=== PATIENT | female | born 1990 | race Caucasian/White ===

== ENCOUNTER 2016-12-07 10:07 | Inpatient (IN) | payer SELFPAY ==
[2016-12-07 11:01] LABS: ROM Internal QC QC Line Present
[2016-12-07] MEDS ORDERED: Penicillin G Potassium IV* 5,000,000 UNITS in NS 0.9% 100 ML* 100 ML IVPB ONE (11:30)
[2016-12-07 11:55] LABS: Hematocrit 34 % (35-47); Hemoglobin 11.2 g/dl (12.0-16.0); Mean Corpuscular HGB Conc 34 g/dl (31-36); Mean Corpuscular Hemoglobin 30 pg (27-31); Mean Corpuscular Volume 89 fL (80-97); Mean Platelet Volume 9 um3 (7.4-10.4); Red Blood Count 3.75 10^6/ul (4.0-5.4); Red Cell Distribution Width 14 % (10.5-15); White Blood Count 10.5 10^3/ul (3.5-10.8)
[2016-12-07] MEDS ORDERED: Oxytocin in LR* 20 UNITS/1,000 ML BAG IVPB SCH (16:00)
[2016-12-07] MEDS: Penicillin G Potassium IV* 2,500,000 UNITS in NS 0.9% 100 ML* 100 ML IVPB SCH ×2 (16:14→20:31)
[2016-12-07] MEDS ORDERED: fentaNYL* 50 MCG/ML 2 ML VIAL (100 MCG VIAL) IV ONE (19:58)
[2016-12-07] MEDS ORDERED: fentaNYL* 50 MCG/ML 2 ML VIAL (100 MCG VIAL) ONE (19:59)
[2016-12-07] MEDS ORDERED: OBEPIDURAL* 250 ML ONE (21:44)
[2016-12-07] MEDS ORDERED: Famotidine TAB* 20 MG PO PRN (22:28)
[2016-12-07] MEDS ORDERED: Sodium Citrate/Citric Acid* 15 ML UDC PO PRN (22:28)
[2016-12-07] MEDS ORDERED: Phenylephrine IV* 40 MCG/ML 10 ML SYRINGE IV PUSH PRN ×2 (22:28)
[2016-12-07] MEDS ORDERED: OBEPIDURAL* 250 ML EPIDURAL SCH (23:00)
[2016-12-08] MEDS: Penicillin G Potassium IV* 2,500,000 UNITS in NS 0.9% 100 ML* 100 ML IVPB SCH (00:33)
[2016-12-08] MEDS ORDERED: Measles, Mumps,Rubella VACC* 0.5 ML/VIAL SUBCUT ONE (02:25)
[2016-12-08] MEDS ORDERED: Witch Hazel PAD* JAR TOPICAL PRN (02:25)
[2016-12-08] MEDS ORDERED: Acetaminophen TAB* 325 MG PO PRN (02:25)
[2016-12-08] MEDS ORDERED: Dibucaine 1% 28.35 GM TUBE PR PRN (02:25)
[2016-12-08] MEDS ORDERED: Influenza VAC *QUAD* 2016-17* 0.5 ML SYRINGE IM ONE (02:27)
[2016-12-08] MEDS ORDERED: Oxytocin in LR* 20 UNITS/1,000 ML BAG IVPB SCH (03:00)
[2016-12-08] MEDS: Docusate CAP* 100 MG PO SCH ×3 (09:17→23:34)
[2016-12-08] MEDS: Ibuprofen TAB* 600 MG PO PRN ×3 (11:15→23:38)
[2016-12-08] MEDS: oxyCODONE/Acetamin 5/325 MG* TAB PO PRN (19:47)
[2016-12-09] MEDS: Ibuprofen TAB* 600 MG PO PRN ×3 (06:38→23:40)
[2016-12-09] MEDS: oxyCODONE/Acetamin 5/325 MG* TAB PO PRN ×3 (06:39→20:19)
[2016-12-09 07:33] LABS: Hematocrit 27 % (35-47); Mean Corpuscular HGB Conc 33 g/dl (31-36); Mean Corpuscular Hemoglobin 30 pg (27-31); Mean Corpuscular Volume 91 fL (80-97); Mean Platelet Volume 9 um3 (7.4-10.4); Red Cell Distribution Width 13 % (10.5-15); White Blood Count 11.9 10^3/ul (3.5-10.8)
[2016-12-09] MEDS: Ferrous Gluconate TAB* 324 MG TAB PO SCH ×2 (09:48→20:19)
[2016-12-09] MEDS: Docusate CAP* 100 MG PO SCH ×3 (09:48→22:57)
[2016-12-10] MEDS: oxyCODONE/Acetamin 5/325 MG* TAB PO PRN (04:21)
[2016-12-10 07:53] VITALS: BP 116/70
[2016-12-10] MEDS: Ibuprofen TAB* 600 MG PO PRN (09:03)
[2016-12-10] MEDS: Ferrous Gluconate TAB* 324 MG TAB PO SCH (09:04)
[2016-12-10] MEDS: Docusate CAP* 100 MG PO SCH (09:05)
== END 2016-12-10 14:04 | disposition home or self-care (01) | DRG 775 ==
LOC: MCHOBOUT 10:07 → MCHOB 11:10
PROVIDERS: ADMIT Midwife; ATTEND Nurse Practitioner
PROC: 10E0XZZ Delivery of Products of Conception, External Approach (ICD-10-PCS; principal; 2016-12-08)
DX: O99.824 Streptococcus B carrier state complicating childbirth (principal); D64.9 Anemia, unspecified; F17.210 Nicotine dependence, cigarettes, uncomplicated; O99.334 Smoking (tobacco) complicating childbirth; O90.81 Anemia of the puerperium; Z91.040 Latex allergy status; Z88.8 Allergy status to other drugs, medicaments and biological substances; Z91.018 Allergy to other foods; Z3A.36 36 weeks gestation of pregnancy; Z37.0 Single live birth
CPT/HCPCS: 36415; 84112; 85025; 86850; 86900; 86901; 90686; A9270-GY; J2540; J3010

== ENCOUNTER 2017-08-27 17:13 | Emergency (ER) | payer SELFPAY ==
[2017-08-27 17:26] VITALS: BP 108/70
--- NOTE | 2017-08-27 17:54 | RAD ---
INDICATION: Right elbow injury COMPARISON: None TECHNIQUE: AP, lateral, and oblique views were obtained. FINDINGS: The bony structures, joint spaces, and soft tissues are normal for age. IMPRESSION: NEGATIVE EXAMINATION.
--- NOTE | 2017-08-27 18:11 | UC ---
Elbow Pain - HPI Summary HPI Summary: FELL DOWN [employer] TODAY AND STRUCK RIGHT ELBOW. HAS PAIN AND DECREASED ROM. NO SWELLING OR ABRASIONS. - History of Current Complaint Chief Complaint: UCUpperExtremity Stated Complaint: ELBOW INJURY Time Seen by Provider: 08/27/17 17:55 Hx Obtained From: Patient Hx Last Menstrual Period: now Onset/Duration: Hours, Traumatic Severity Initially: Moderate Severity Currently: Moderate Pain Intensity: 7 Pain Scale Used: 0-10 Numeric Location Of Pain: Is Discrete @ - RIGHT ELBOW - Allergies/Home Medications Allergies/Adverse Reactions: Allergies Allergy/AdvReac Type Severity Reaction Status Date / Time Bee Venom Allergy Severe Anaphylatic Verified 08/27/17 17:27 Shock Latex Allergy Severe Anaphylatic Verified 08/27/17 17:27 Shock Home Medications: Home Medications Ibuprofen TAB* [Motrin TAB* 800 MG] 1 tab PO ONCE 08/27/17 [History Confirmed ] PMH/Surg Hx/FS Hx/Imm Hx Previously Healthy: Yes Other History Of: Negative For: Anticoagulant Therapy - Surgical History Surgical History: Yes Surgery Procedure, Year, and Place: APPY 2004. "two cysts removed from my throat" - Family History Known Family History: Positive: Cardiac Disease, Diabetes - Social History Alcohol Use: Occasionally Substance Use Type: None Substance Use Comment - Amount & Last Used: Percocet for sciatic pain Smoking Status (MU): Light Every Day Tobacco Smoker Type: Cigarettes Amount Used/How Often: 5-6 cigs/day Length of Time of Smoking/Using Tobacco: 2012 Have You Smoked in the Last Year: Yes Household Exposure Type: Cigarettes - Immunization History Most Recent Influenza Vaccination: 07/08/14 Most Recent Tetanus Shot: 09/2016 Most Recent Pneumonia Vaccination: unk Review of Systems Constitutional: Negative Skin: Negative Respiratory: Negative Cardiovascular: Negative Gastrointestinal: Negative Musculoskeletal: Arthralgia, Decreased ROM All Other Systems Reviewed And Are Negative: Yes Physical Exam Triage Information Reviewed: Yes Appearance: Well-Appearing, No Pain Distress, Well-Nourished Vital Signs: Initial Vital Signs Temp 98.0 F 08/27/17 17:22 Pulse 90 08/27/17 17:22 Resp 12 08/27/17 17:22 BP 108/70 08/27/17 17:22 Pulse Ox 100 08/27/17 17:22 Vital Signs Reviewed: Yes Eyes: Positive: Conjunctiva Clear ENT: Positive: Hearing grossly normal Neck: Positive: Supple Respiratory: Positive: No respiratory distress, No accessory muscle use Cardiovascular: Positive: Pulses Normal Abdomen Description: Positive: Soft Musculoskeletal: Positive: No Edema, ROM Limited @, Other: - TTP DIFFUSELY OVER ELBOW. Neurological: Positive: Alert Psychological: Positive: Age Appropriate Behavior Skin: Positive: breakdown. Negative: rashes Diagnostics - Radiology RIGHT ELBOW XRAYS Xray Interpretation: No Acute Changes Radiology Interpretation Completed By: Radiologist Elbow Pain Course/Dx - Differential Dx/Diagnosis Provider Diagnoses: RIGHT ELBOW CONTUSION Discharge - Discharge Plan Condition: Stable Disposition: HOME Patient Education Materials: Contusion in Adults (ED) Referrals: Jalen Ayoub MD [Primary Care Provider] - Additional Instructions: XRAYS TODAY UNREMARKABLE. CHARMAINE WRAP FOR COMPRESSION. REST, ICE ELEVATE. OTC IBUPRFEN OR TYLENOL FOR DISCOMFORT NEEDED. FOLLOW-UP WITH ORTHO IF YOU ARE NOT IMPROVING EXPECTED OVER THE NEXT WEEK. ALL THE NUMBER BELOW FOR ASSISTANCE IN ESTABLISHING WITH A PCP An additional resource available to assist in finding the appropriate physician for your health care needs is the [facility] ([facility]). You may contact them by calling [phone].
== END 2017-08-27 18:33 | disposition home or self-care (01) ==
LOC: UCEAST 17:13
DX: S50.01XA Contusion of right elbow, initial encounter (principal); W10.9XXA Fall (on) (from) unspecified stairs and steps, initial encounter; Y93.9 Activity, unspecified; Y92.9 Unspecified place or not applicable; F17.210 Nicotine dependence, cigarettes, uncomplicated
CPT/HCPCS: 99212; G0463

== ENCOUNTER 2018-01-02 16:05 | Emergency (ER) | payer SELFPAY ==
[2018-01-02 16:31] VITALS: BP 99/65
--- NOTE | 2018-01-02 17:08 | UC ---
Complaint Female HPI - HPI Summary HPI Summary: 27 y/o female s/p IUD placement 07/2017 c/o- abdominal cramping since monday, worsening, no vaginal bleeding, discharge, no painful sex, cramping increased to where always mild ache, a few times an hour sharp, stabbing pain radiating to back. h/o appy. worse with driving over bumps, better with positioning ( sometimes flat, sometimes curled into ball). when going over bump with severe pain, felt lightheaded lasting 30 seconds. pt has h/o lightheadedness, increased with . G2, currently had 3, 2 y/o. denies urinary symptoms - History Of Current Complaint Chief Complaint: UCGU Stated Complaint: PERSONAL Time Seen by Provider: 01/02/18 16:44 Hx Obtained From: Patient Hx Last Menstrual Period: 12/14/[address] Onset/Duration: Sudden Onset, Lasting Days - since monday Timing: Constant - ache, Intermittent - sharp stabbing pain Severity Initially: Moderate Severity Currently: Moderate Pain Intensity: 7 Pain Scale Used: 0-10 Numeric - Allergies/Home Medications Allergies/Adverse Reactions: Allergies Allergy/AdvReac Type Severity Reaction Status Date / Time bee venom protein (honey bee) Allergy Severe Anaphylatic Verified 01/02/18 16:32 Shock latex Allergy Severe Anaphylatic Verified 01/02/18 16:32 Shock Latex, Natural Rubber Allergy Severe Anaphylatic Verified 01/02/18 16:32 Shock PMH/Surg Hx/FS Hx/Imm Hx Previously Healthy: Yes Other History Of: Negative For: Anticoagulant Therapy - Surgical History Surgical History: Yes Surgery Procedure, Year, and Place: APPY 2004. "two cysts removed from my throat" - Family History Known Family History: Positive: None, Cardiac Disease, Diabetes - Social History Alcohol Use: Rare Substance Use Type: None Substance Use Comment - Amount & Last Used: Percocet for sciatic pain Smoking Status (MU): Light Every Day Tobacco Smoker Type: Cigarettes Amount Used/How Often: 5-6 cigs/day Length of Time of Smoking/Using Tobacco: 2012 Have You Smoked in the Last Year: Yes Household Exposure Type: Cigarettes - Immunization History Most Recent Influenza Vaccination: 07/08/14 Most Recent Tetanus Shot: 09/2016 Most Recent Pneumonia Vaccination: unk Review of Systems Constitutional: Chills Eyes: Blurred Vision - lightheadedness lasting 30 seconds x 1 episode ENT: Negative Respiratory: Negative Gastrointestinal: Abdominal Pain, Other - cramping lower quad worse R Genitourinary: Negative Is Patient Immunocompromised?: No All Other Systems Reviewed And Are Negative: Yes Physical Exam - Summary Physical Exam Summary: Vaginal examination- normal external genitalia, non-tender, no LAD, rashes. vaginal wall normall, cervix slightly erythematous, + cervical motion tenderness , + tender R adenexa. minimal tenderness over uterus without pressure on cervix. dark yellow/ brown watery discharge noted. cultures obtained. Triage Information Reviewed: Yes Appearance: Well-Appearing, No Pain Distress, Well-Nourished Vital Signs: Initial Vital Signs Temp 98.6 F 01/02/18 16:25 Pulse 95 01/02/18 16:25 Resp 16 01/02/18 16:25 BP 99/65 01/02/18 16:25 Pulse Ox 100 01/02/18 16:25 Vital Signs Reviewed: Yes Eyes: Positive: Conjunctiva Clear Respiratory: Positive: Chest non-tender, Lungs clear, Normal breath sounds, No respiratory distress, No accessory muscle use. Negative: Crackles, Rhonchi, Stridor, Wheezing Cardiovascular: Positive: RRR, No Murmur, Pulses Normal Abdomen Description: Positive: No Organomegaly, Soft, Guarding - over suprapubic , RLQ, LLQ, McBurney's Point Tenderness, Other: - neg psoas, +. Negative: Nontender, CVA Tenderness (R), CVA Tenderness (L), Distended, Hepatomegaly, Peritoneal Signs, Splenomegaly Bowel Sounds: Positive: Present Neurological Exam: Normal Psychological Exam: Normal Skin Exam: Normal Complaint Female Dx - Course Course Of Treatment: STD testing sent, patient treated at with one times dose , will follow up with cultures, f/u with surveying or spatial science technician, no sexual activity until cleared. - Differential Dx/Diagnosis Differential Diagnosis/HQI/PQRI: Cervicitis, Ectopic, Sexually Transmitted Disease Provider Diagnoses: cervicitis Discharge - Sign-Out/Discharge Documenting (check all that apply): Discharge - Discharge Plan Condition: Good Disposition: HOME Prescriptions: HYDROcodone/ACETAMIN 5-325 MG* [Hume 5-325 TAB*] 1 tab PO Q4H PRN #15 tab MDD 6 PRN Reason: Pain Patient Education Materials: Azithromycin (By mouth), Ceftriaxone (By injection ), Cervicitis (ED) Referrals: Jalen Ayoub MD [Primary Care Provider] - Additional Instructions: - Return to ER with worsening symptoms, increased pain, vaginal discharge, fever > 101, nausea/ vomiting - Increased fluid intake - Avoid sexual contact until results from testing completed - ANtibiotics given at urgent care - Hume 5/325mg as needed for pain every 4-6 hours, [address] not drive - [facility]OM[facility]IST within 1 week for re-eval - Billing Disposition and Condition Condition: GOOD Disposition: HOME
[2018-01-02] MEDS ORDERED: cefTRIAXone VIAL(*) 250 MG VIAL IM ONE (17:40)
[2018-01-02] MEDS ORDERED: Azithromycin TAB* 250 MG PO ONE (17:41)
[2018-01-02] MEDS ORDERED: Lidocaine 1% MPF* 2 ML VIAL ONE (17:48)
--- NOTE | 2018-01-04 15:03 | PN ---
Progress Note - Progress Note Date of Service: 01/02/18 Note: Positive for Gardnerella Patient was not placed on antibiotics prior to discharge She is given Flagyl 500 mg twice a day 7 days Patient will be called by nursing staff Nothing further at this time
== END 2018-01-02 18:15 | disposition home or self-care (01) ==
LOC: UCEAST 16:05
DX: N72 Inflammatory disease of cervix uteri (principal); R42 Dizziness and giddiness; H53.8 Other visual disturbances; Z32.02 Encounter for pregnancy test, result negative; Z91.030 Bee allergy status; Z91.040 Latex allergy status; F17.210 Nicotine dependence, cigarettes, uncomplicated
CPT/HCPCS: 81003; 84702; 87480; 87491; 87510; 87591; 96372; 99212; A9270-GY; G0463; J0696

== ENCOUNTER 2018-10-30 11:42 | Emergency (ER) | payer MEDICAID ==
--- OUTSIDE RECORDS SUMMARY | 2018-10-30 11:51 | XMS REPORT | Continuity of Care Document ---
:1990 Author Organization [facility] Address [address] [place], [place] [id number] Phone Care Team Providers Name Role Phone Annette Restrepo NP Unavailable Unavailable Allergies, Adverse Reactions, Alerts Substance Reaction Status latex Anaphylaxis Active Medications Medication Instructions Dosage Effective Dates Status Comments (start - stop) ParaGard T 380A 380 Insert IU - No Longer square mm intrauterine Active device Problems Condition Effective Dates (start - Clinical Status Comments stop) Human immunodeficiency virus [HIV] - counseling Encounter for removal of intrauterine contraceptive device Encounter for test, result negative Human immunodeficiency virus [HIV] - counseling Encounter for insertion of intrauterine contraceptive device Body mass index (BMI) 22.0-22.9, adult Procedures Procedure Date No information Results Test Name Date and Time Measure Units Reference Range Abnormal Flag Status Comments No information Advance Directives Directive Yes / No Effective Date File Name No information Encounters Encounter Practice Location Reason(s) Diagnoses Date Provider Providers Description For Visit Copied on Encounter [facility] [place] [address] Provider: [facility] [address], Annette Finger [place], [place], [place], [address] [id number], [place]. [address] tel:[phone], [place], [address] [place], [place], [place], [address]. [id number], tel:[phone] tel:[phone] [facility] Human Abraham Bright. [facility] [place] immunodeficiency [address] Provider: [place] virus [HIV] [address], [place], [place], [address], [place], [address], [address] [place]uter[address], St, [place], contraceptive [place], [place], [place], [address]. [id number], [place] tel:[phone] [facility] Encounter for [facility] [place] test, [address] Provider: [place] result [address], [place]ene Finger negativeHuman [place], [place], [place], [address] immunodeficiency [address]. s, [address] virus [HIV] tel:[phone], [address], [place], [place] [address] [place], [place], [place], [address]. [id number], insertion of tel:[phone] [place] intrauterine [id number] tel:[phone] contraceptive [phone] deviceBody mass index (BMI) 22.0-22.9, adult Family History Family Member Diagnosis Age At Onset No information Immunizations Vaccine Date Status Comments No information Payers Payer name Insurance type Covered alliance party ID Authorization(s) No information Social History Type Description Quantity Date Captured Comments Alcohol Use Details Unknown Caffeine Use Details Unknown Tobacco Use Status Unknown Smoking Status Unknown Sex Female Vital Signs Date / Height Weight BMI Pulse Blood Temperature Respiratory Body Head BMI Pulse Inhaled Time: Rate Pressure Rate Surface Circumference percentile Ox Ox Area No information Chief Complaint And Reason For Visit No information Reason For Referral Reason For Referral No information Plan Of Treatment Date Type Action Status Goal Tobacco cessation counseling completed History Of Present Illness Encounter Date Complaint History Of Present Illness No information Functional Status Date Functional Assessment No information Medications Administered Medication Instructions Dosage Effective Dates (start - stop) Status Comments No information Instructions Date Instruction Additional Information No information Assessments Type Assessment Date No information Goals Health Concern Goal Type Priority Status Date No information Medical Equipment Description Device [place] Device Identifier Effective Dates (start - stop ) Status No information Mental Status Date Cognitive Assessment No information Health Concerns Observation Date No information Concern Status Date No information
--- NOTE | 2018-10-30 12:13 | UC ---
Complaint Female HPI - HPI Summary HPI Summary: Pleasant 28 yo female c/o progressively worse pelvic pain starting apprx Sat ( today is Tu). No fever / chills. Able to lie flat, but hurts. Some dysuria / freq / urg. Had IUD removed early last week, a few days prior to discomfort, routine procedure (pt reports that she wanted it out, not b/c pain). No GI issues, although appetite decreased. Some vaginal spotting, minimal discharge, no sores. Hx appdcetomy 2005. 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 - History Of Current Complaint Chief Complaint: UCAbdominalPain Stated Complaint: ABDOMINAL CRAMPING Time Seen by Provider: 10/30/18 12:02 Hx Obtained From: Patient Hx Last Menstrual Period: 10/18/18 Pain Intensity: 7 - Allergies/Home Medications Allergies/Adverse Reactions: Allergies Allergy/AdvReac Type Severity Reaction Status Date / Time bee venom protein (honey bee) Allergy Severe Anaphylatic Verified 10/30/18 11:53 Shock latex Allergy Severe Anaphylatic Verified 10/30/18 11:53 Shock Latex, Natural Rubber Allergy Severe Anaphylatic Verified 10/30/18 11:53 Shock Home Medications: Home Medications Ibuprofen 600 mg PO ONCE PRN 10/30/18 [History Confirmed 10/30/18] PMH/Surg Hx/FS Hx/Imm Hx Previously Healthy: Yes Other History Of: Negative For: Anticoagulant Therapy - Surgical History Surgical History: Yes Surgery Procedure, Year, and Place: APPY 2004. "two cysts removed from my throat" - Family History Known Family History: Positive: None, Cardiac Disease, Diabetes - Social History Alcohol Use: Rare Substance Use Type: None Substance Use Comment - Amount & Last Used: Percocet for sciatic pain Smoking Status (MU): Light Every Day Tobacco Smoker Type: Cigarettes Amount Used/How Often: 4-5 cigs/day Length of Time of Smoking/Using Tobacco: 2012 Have You Smoked in the Last Year: Yes Household Exposure Type: Cigarettes - Immunization History Most Recent Influenza Vaccination: 07/08/14 Most Recent Tetanus Shot: 09/2016 Most Recent Pneumonia Vaccination: unk Review of Systems All Other Systems Reviewed And Are Negative: Yes Constitutional: Positive: Other - see hpi Skin: Positive: Negative Eyes: Positive: Negative ENT: Positive: Negative Respiratory: Positive: Negative Cardiovascular: Positive: Negative Gastrointestinal: Positive: Other - see hpi Genitourinary: Positive: Other - see hpi Motor: Positive: Other - see hpi Neurovascular: Positive: Negative Musculoskeletal: Positive: Negative Neurological: Positive: Negative Psychological: Positive: Negative Is Patient Immunocompromised?: No Physical Exam Triage Information Reviewed: Yes Appearance: Well-Nourished - NAD, nontoxic. But looks uncomfortable. Vital Signs: Initial Vital Signs Temp 98.7 F 10/30/18 11:49 Pulse 90 10/30/18 11:49 Resp 18 10/30/18 11:49 BP 117/72 10/30/18 11:49 Pulse Ox 99 10/30/18 11:49 Eye Exam: Normal ENT Exam: Normal - MMM. Trachea midline. Neck exam: Normal Neck: Positive: Supple Respiratory Exam: Normal Respiratory: Positive: Chest non-tender, Lungs clear, Normal breath sounds, No respiratory distress, No accessory muscle use Cardiovascular Exam: Normal Cardiovascular: Positive: RRR, No Murmur, Pulses Normal, Brisk Capillary Refill Abdominal Exam: Other - + tender mid-right pelvis. Voluntary guarding, nondistended. No cvat, but back a little uncomfortable, nonfocal (pt attributes to working out a lot). Pelvic Exam: Positive: External Exam Normal, Other - Nl ext female genitalia. No sores / lesions / rash noted. Vag vault - yellow brown red thick d/c - very small amount. Cervix mild tender. R adnexa - without myra mass, region is more tender than L adnexa Musculoskeletal Exam: Normal Neurological Exam: Normal - grossly nonfocal Psychological Exam: Normal - conversing easily and appropriately Skin Exam: Normal - nondiaphoretic. No visible / reported rash. Complaint Female Dx - Course Course Of Treatment: Reviewed urine dip (d/w pt), cx sent. UCG negative. U/s - see meditech report. Reviewed with pt, including need to f/u with [facility] soon. I spoke with Dr. Beard (obgyn [facility] operations specialist), blood work ordered , his office will f/u on results. Pt will call him to schedule appt. Encouraged pt to go to the ED if sx worsen, or if they don't improve in the next couple days. Reviewed coa / tx plan. Questions as posed answered to the best of my ability. - Differential Dx/Diagnosis Provider Diagnosis: Pelvic pain, Ovarian cyst, Lesion of ovary Discharge - Sign-Out/Discharge Documenting (check all that apply): Patient Departure All imaging exams completed and their final reports reviewed: Yes - Discharge Plan Condition: Stable Disposition: HOME Prescriptions: DOXYcycline CAP(*) [DOXYcycline 100MG CAP(*)] 100 mg PO BID #20 cap Naproxen [Naproxen 500 mg tab] 500 mg PO Q12H PRN #30 tab PRN Reason: Pain Patient Education Materials: Ovarian Cyst (ED), Pelvic Pain in Women (ED) Forms: *Work Release Referrals: [facility] [place] [facility] [Outside] Jeremy Beard MD [Medical Doctor] - Additional Instructions: Please follow up with a primary care physician as soon as you are able. Please schedule a follow up appointment with ObGyn MD (Dr. Beard) in the next 2 weeks. Go to the Emergency Department for ANY worse or new problems. You had blood work drawn today. Urine culture has been sent. Female cultures have been sent. Avoid sexual intercourse until feeling better and results of the above have been reviewed with you (and treated as indicated). You have a lesion in your left ovary that needs further evaluation. Please make sure that you follow up with eyewear manufacturing supervisor as recommended. - Billing Disposition and Condition Condition: STABLE Disposition: Home
[2018-10-30] MEDS ORDERED: cefTRIAXone VIAL(*) 250 MG VIAL IM ONE (14:22)
[2018-10-30] MEDS ORDERED: Ketorolac INJ* 60 MG/2 ML VIAL IM ONE (14:22)
[2018-10-30] MEDS ORDERED: Lidocaine 1% INJ* 10 MG/ML 30 ML SDV INJ ONE (14:23)
[2018-10-30] MEDS ORDERED: DOXYcycline CAP(*) 100 MG PO ONE (14:24)
[2018-10-30 14:26] VITALS: BP 109/68
[2018-10-30] MEDS ORDERED: Lidocaine 1%* 5 ML VIAL ONE ×2 (14:30)
[2018-10-30 19:07] LABS: ABS Basophils 0 10^3/ul (0-0.2); ABS Eosinophils 0.1 10^3/ul (0-0.6); ABS Lymphocytes 2.3 10^3/ul (1.0-4.8); ABS Monocytes 0.5 10^3/ul (0-0.8); ABS Neutrophils 4.1 10^3/ul (1.5-7.7); ABS Nucleated RBC 0 10^3/ul; Eosinophil % 1.8 %; Hematocrit 42 % (35-47); Lymphocyte % 32.4 %; Mean Corpuscular HGB Conc 34 g/dl (31-36); Mean Corpuscular Hemoglobin 32 pg (27-31); Mean Corpuscular Volume 94 fL (80-97); Mean Platelet Volume 9.5 fL (7.4-10.4); Nucleated Red Blood Cells % 0.2; Platelet Count 290 10^3/ul (150-450); Red Blood Count 4.44 10^6/ul (4.00-5.40); Red Cell Distribution Width 13 % (10.5-15)
[2018-10-30 19:22] LABS: Albumin 4.5 g/dL (3.2-5.2); Anion Gap 5 mmol/L (2-11); CO2 Carbon Dioxide 27 mmol/L (22-32); Calcium 9.7 mg/dL (8.6-10.3); Chloride 108 mmol/L (101-111); Potassium 4.4 mmol/L (3.5-5.0); Sodium 140 mmol/L (135-145)
[2018-10-30 19:28] LABS: ALT 16 U/L (7-52); AST 30 U/L (13-39); Albumin/Globulin Ratio 1.7 (1-3); Alkaline Phosphatase 60 U/L (34-104); BUN/Creatinine Ratio 9.5 (8-20); Blood Urea Nitrogen 7 mg/dL (6-24); EGFR African American 113.9 (>60); EGFR Non-African American 94.1 (>60); Globulin 2.6 g/dL (2-4); Glucose 78 mg/dL (70-100); Total Protein 7.1 g/dL (6.4-8.9)
[2018-10-30 19:41] LABS: C Reactive Protein < 1.00 mg/L (<8.01)
[2018-10-31 12:25] LABS: Neisseria gonorrhoeae (GC) RNA Negative (Negative)
--- NOTE | 2018-10-31 17:36 | UC ---
- Progress Note Progress Note: 10/31/2018 Urine culture: negative, GC/Chlamydia: negative. Negative Gardnerella. Positive Wanda Please call back patient and inform results and advised a Rx of Fluconazole PO was sent to pharmacy to treat yeast infection. Thank You Adrienne Lincoln PA-C Course/Dx - Diagnoses Provider Diagnoses: Pelvic pain, Ovarian cyst, Lesion of ovary Discharge - Sign-Out/Discharge Documenting (check all that apply): Patient Departure - D/C home All imaging exams completed and their final reports reviewed: Yes - Discharge Plan Condition: Stable Disposition: HOME Prescriptions: DOXYcycline CAP(*) [DOXYcycline 100MG CAP(*)] 100 mg PO BID #20 cap Naproxen [Naproxen 500 mg tab] 500 mg PO Q12H PRN #30 tab PRN Reason: Pain Patient Education Materials: Ovarian Cyst (ED), Pelvic Pain in Women (ED) Forms: *Work Release Referrals: [facility] [place] [facility] [Outside] Jeremy Beard MD [Medical Doctor] - Additional Instructions: Please follow up with a primary care physician as soon as you are able. Please schedule a follow up appointment with ObGyn (Dr. Beard) in the next 2 weeks. Go to the Emergency Department for ANY worse or new problems. You had blood work drawn today. Urine culture has been sent. Female cultures have been sent. Avoid sexual intercourse until feeling better and results of the above have been reviewed with you (and treated as indicated). You have a lesion in your left ovary that needs further evaluation. Please make sure that you follow up with wrapper dipper as recommended. - Billing Disposition and Condition Condition: STABLE Disposition: Home
== END 2018-10-30 14:45 | disposition home or self-care (01) ==
LOC: UCEAST 11:42
DX: R10.2 Pelvic and perineal pain (principal); N83.01 Follicular cyst of right ovary; N83.291 Other ovarian cyst, right side; B37.3 Candidiasis of vulva and vagina; Z91.030 Bee allergy status; Z91.040 Latex allergy status; F17.210 Nicotine dependence, cigarettes, uncomplicated
CPT/HCPCS: 36415; 76830; 80053; 81003; 84702; 85025; 86140; 87086; 87480; 87491; 87510; 87591; 96372; 99212; A9270-GY; G0463; J0696; J1885

== ENCOUNTER 2018-12-03 17:21 | Emergency (ER) | payer MEDICAID ==
[2018-12-03 19:35] LABS: ABS Basophils 0 10^3/ul (0-0.2); ABS Eosinophils 0.1 10^3/ul (0-0.6); ABS Lymphocytes 2.7 10^3/ul (1.0-4.8); ABS Monocytes 0.7 10^3/ul (0-0.8); ABS Neutrophils 3.9 10^3/ul (1.5-7.7); ABS Nucleated RBC 0 10^3/ul; Eosinophil % 1.8 %; Hematocrit 41 % (35-47); Hemoglobin 13.6 g/dl (12.0-16.0); Lymphocyte % 36.2 %; Mean Corpuscular HGB Conc 34 g/dl (31-36); Mean Corpuscular Hemoglobin 31 pg (27-31); Mean Corpuscular Volume 92 fL (80-97); Mean Platelet Volume 8.5 fL (7.4-10.4); Nucleated Red Blood Cells % 0; Platelet Count 241 10^3/ul (150-450); Red Cell Distribution Width 13 % (10.5-15); White Blood Count 7.6 10^3/ul (3.5-10.8)
[2018-12-03 19:52] LABS: ALT 12 U/L (7-52); AST 16 U/L (13-39); Albumin 4.6 g/dL (3.2-5.2); Albumin/Globulin Ratio 1.6 (1-3); Alkaline Phosphatase 48 U/L (34-104); Anion Gap 3 mmol/L (2-11); BUN/Creatinine Ratio 18.8 (8-20); Blood Urea Nitrogen 13 mg/dL (6-24); C Reactive Protein < 1.00 mg/L (<8.01); CO2 Carbon Dioxide 25 mmol/L (22-32); Calcium 9.5 mg/dL (8.6-10.3); Chloride 109 mmol/L (101-111); EGFR African American 123.5 (>60); EGFR Non-African American 102.1 (>60); Globulin 2.8 g/dL (2-4); Glucose 96 mg/dL (70-100); Potassium 4.3 mmol/L (3.5-5.0); Sodium 137 mmol/L (135-145); Total Protein 7.4 g/dL (6.4-8.9)
[2018-12-03] MEDS ORDERED: Ibuprofen TAB* 400 MG PO ONE (20:29)
[2018-12-03] MEDS ORDERED: HYDROcodone/ACETAMIN 5-325 MG* 1 TAB PO ONE (20:29)
--- NOTE | 2018-12-03 20:59 | ED ---
Abdominal Pain/Female - HPI Summary HPI Summary: The patient is a 28 year old female who is presenting to the [facility] with a chief complaint of abd pain. The abd pain is stated to be over the suprapubic region. Prior to [facility] arrival, the patient reports of scheduling a surgery for removal of her ovarian cyst in December. The pain has been present for 1 month and a half, but has worsened since 3 days ago. The patient also recently finished her medication that was previously prescribed to her. Symptoms are aggravated by palpation and are alleviated by position. The patient rates the pain as a 8/10 in severity. The pain is also reportedly near the pelvic region as well. - History of Current Complaint Chief Complaint: EDAbdPain Stated Complaint: ABD/PELVIC PAIN Time Seen by Provider: 12/03/18 20:17 Hx Obtained From: Patient Hx Last Menstrual Period: 11/16/18 Onset/Duration: Still Present Timing: Constant Pain Intensity: 8 Pain Scale Used: 0-10 Numeric Location: Suprapubic Aggravating Factor(s): Nothing Alleviating Factor(s): Nothing Associated Signs and Symptoms: Positive: Negative Allergies/Adverse Reactions: Allergies Allergy/AdvReac Type Severity Reaction Status Date / Time bee venom protein (honey bee) Allergy Severe Anaphylatic Verified 12/03/18 17:34 Shock latex Allergy Severe Anaphylatic Verified 12/03/18 17:34 Shock Latex, Natural Rubber Allergy Severe Anaphylatic Verified 12/03/18 17:34 Shock PMH/Surg Hx/FS Hx/Imm Hx Endocrine/Hematology History: Denies: Hx Anticoagulant Therapy, Hx Diabetes, Hx Thyroid Disease Cardiovascular History: Denies: Hx Hypertension, Hx Pacemaker/ICD Respiratory History: Reports: Hx Asthma - as child Denies: Hx Chronic Obstructive Pulmonary Disease (COPD) GI History: Denies: Hx Ulcer History: Reports: Hx Renal Disease - pyelonephritis Comment Only: Other Problems/Disorders - ovarian cysts Neurological History: Denies: Hx Dementia, Hx Seizures Psychiatric History: Denies: Hx Substance Abuse - Cancer History Cancer Type, Location and Year: denies - Surgical History Surgery Procedure, Year, and Place: APP2004. "two cysts removed from my throat" - Immunization History Date of Tetanus Vaccine: unknown Date of Influenza Vaccine: unknown Infectious Disease History: No Infectious Disease History: Denies: Hx Clostridium Difficile, Hx Hepatitis, Hx Human Immunodeficiency Virus (HIV), Hx of Known/Suspected MRSA, Hx Shingles, Hx Tuberculosis, Hx Known/ Suspected VRE, Hx Known/Suspected VRSA, History Other Infectious Disease, Traveled Outside the [place] in Last 30 Days - Family History Known Family History: Positive: Cardiac Disease, Hypertension, Diabetes - Social History Alcohol Use: None Substance Use Type: Reports: None Substance Use Comment - Amount & Last Used: Percocet for sciatic pain Hx Tobacco Use: Yes Smoking Status (MU): Light Every Day Tobacco Smoker Type: Cigarettes Amount Used/How Often: 4-5 cigs/day Length of Time of Smoking/Using Tobacco: 2012 Have You Smoked in the Last Year: Yes Review of Systems Constitutional: Negative Eyes: Negative ENT: Negative Cardiovascular: Negative Respiratory: Negative Positive: Abdominal Pain - suprapubic abd pain Genitourinary: Negative Musculoskeletal: Other - Pelvic pain Skin: Negative Neurological: Negative Psychological: Normal All Other Systems Reviewed And Are Negative: Yes Physical Exam - Summary Physical Exam Summary: VITAL SIGNS: Reviewed. GENERAL: Patient is a well-developed and nourished (MALE) who is lying comfortable in the stretcher. Patient is not in any acute respiratory distress. HEAD AND FACE: No signs of trauma. No ecchymosis, hematomas or skull depressions. No sinus tenderness. EYES: PERRLA, EOMI x 2, No injected conjunctiva, no nystagmus. EARS: Hearing grossly intact. Ear canals and tympanic membranes are within normal limits. MOUTH: Oropharynx within normal limits. NECK: Supple, trachea is midline, no adenopathy, no JVD, no carotid bruit, no c- spine tenderness, neck with full ROM. CHEST: Symmetric, no tenderness at palpation LUNGS: Clear to auscultation bilaterally. No wheezing or crackles. CVS: Regular rate and rhythm, S1 and S2 present, no murmurs or gallops appreciated. ABDOMEN: Tenderness over the left pelvic area EXTREMITIES: FROM in all major joints, no edema, no cyanosis or clubbing. NEURO: Alert and oriented x 3. No acute neurological deficits. Speech is normal and follows commands. SKIN: Dry and warm Triage Information Reviewed: Yes Vital Signs On Initial Exam: Initial Vitals Temp Pulse Resp BP Pulse Ox 98.5 F 84 17 127/93 98 12/03/18 17:30 12/03/18 17:30 12/03/18 17:30 12/03/18 17:30 12/03/18 17:30 Vital Signs Reviewed: Yes Diagnostics - Vital Signs Vital Signs Temp Pulse Resp BP Pulse Ox 12/03/18 19:30 97.6 F 74 18 122/78 100 12/03/18 17:30 98.5 F 84 17 127/93 98 - Laboratory Lab Results: Lab Results 12/03/18 12/03/18 12/03/18 Range/Units 19:23 19:23 19:23 WBC 7.6 (3.5-10.8) 10^3/ul RBC 4.40 (4.00-5.40) 10^6/ul Hgb 13.6 (12.0-16.0) g/dl Hct 41 (35-47) % MCV 92 (80-97) fL MCH 31 (27-31) pg MCHC 34 (31-36) g/dl RDW 13 (10.5-15) % Plt Count 241 (150-450) 10^3/ul MPV 8.5 (7.4-10.4) fL Neut % (Auto) 51.9 % Lymph % (Auto) 36.2 % [place] % (Auto) 9.4 % Eos % (Auto) 1.8 % Baso % (Auto) 0.7 % Absolute Neuts (auto) 3.9 (1.5-7.7) 10^3/ul Absolute Lymphs (auto) 2.7 (1.0-4.8) 10^3/ul Absolute Monos (auto) 0.7 (0-0.8) 10^3/ul Absolute Eos (auto) 0.1 (0-0.6) 10^3/ul Absolute Basos (auto) 0 (0-0.2) 10^3/ul Absolute Nucleated RBC 0 10^3/ul Nucleated RBC % 0 Sodium 137 (135-145) mmol/L Potassium 4.3 (3.5-5.0) mmol/L Chloride 109 (101-111) mmol/L Carbon Dioxide 25 (22-32) mmol/L Anion Gap 3 (2-11) mmol/L BUN 13 (6-24) mg/dL Creatinine 0.69 (0.51-0.95) mg/dL Est GFR ( Amer) 123.5 (>60) Est GFR (Non-Af Amer) 102.1 (>60) BUN/Creatinine Ratio 18.8 (8-20) Glucose 96 (70-100) mg/dL Lactic Acid 0.8 (0.5-2.0) mmol/L Calcium 9.5 (8.6-10.3) mg/dL Total Bilirubin 0.40 (0.2-1.0) mg/dL AST 16 (13-39) U/L ALT 12 (7-52) U/L Alkaline Phosphatase 48 (34-104) U/L C-Reactive Protein < 1.00 (<8.01) mg/L Total Protein 7.4 (6.4-8.9) g/dL Albumin 4.6 (3.2-5.2) g/dL Globulin 2.8 (2-4) g/dL Albumin/Globulin Ratio 1.6 (1-3) Lipase 15 (11.0-82.0) U/L Result Diagrams: 12/03/18 19:23 12/03/18 19:23 Lab Statement: Any lab studies that have been ordered have been reviewed, and results considered in the medical decision making process. - Ultrasound No standard instances Ultrasound Interpretation Completed By: Radiologist Summary of Ultrasound Findings: US Reveals as per radiologist, 1. Endometrium is abnormally thickened at 21 mm. 2. 3 x 2.7 x 3.3 cm left adnexal mass with some shadowing calcifications and. some hyperechoic components, possibly pelvic dermoid. This is not significantly. changed. 3. No ovarian torsion with color flow and vascular waveforms documented. 4. Moderate amount of fluid in the pelvis, greater than that expected for. physiologic fluid. This is nonspecific, and may be related to recent rupture of. an ovarian cyst, endometriosis, inflammation or infection, among other. etiologies. The ED Physician has reviewed this radiology report. Abdominal Pain Fem Course/Dx - Course Course Of Treatment: The patient is a 28 year old female who is presenting to the [facility] with a chief complaint of abd pain in the suprapubic region. The patient received an Ultrasound in the [facility]. The blood work was unremarkable. The patient will be discharged home with a dx of ovarian cyst. The patient has stated that she will be seeing Dr. Christensen for removal of previous ovarian cyst in December. We recommended follow up Dr. Christensen (her BOWLING BALL PATCHER) as soon as possible. - Diagnoses Provider Diagnoses: Ovarian cyst Discharge - Sign-Out/Discharge Documenting (check all that apply): Patient Departure - Discharge Home Patient Received Moderate/Deep Sedation with Procedure: No - Discharge Plan Condition: Stable Disposition: HOME Prescriptions: HYDROcodone/ACETAMIN 5-325 MG* [[place] 5-325 TAB*] 1 tab PO Q6H PRN #10 tab MDD 4 PRN Reason: Pain Ibuprofen TAB* [Motrin TAB* 600 MG] 600 mg PO Q6H #30 tab Patient Education Materials: Ovarian Cyst (ED) Forms: *Work Release Referrals: [facility] [Outside] Brent Christensen MD [Medical Doctor] - Additional Instructions: RETURN TO THE EMERGENCY DEPARTMENT FOR CHANGING OR WORSENING SYMPTOMS. FOLLOW UP WITH your BOWLING BALL PATCHER Dr. Christensen IN 1-2 DAYS. - Attestation Statements Document Initiated by Scribe: Yes Documenting Scribe: Jorge Hankins Provider For Whom Scribe is Documenting (Include Credential): Dr. Dick Dobbs Scribe Attestation: I, Jorge Hankins, scribed for Dr. Dick Dobbs on 12/04/18 at 0023. Status of Scribe Document: Ready
[2018-12-03 23:35] LABS: HCG Pregnancy < 0.60 mIU/mL
[2018-12-04 00:03] LABS: Urine Appearance Clear; Urine Bilirubin Negative (Negative); Urine Blood Negative (Negative); Urine Color Yellow; Urine Glucose Negative (Negative); Urine Ketones Negative (Negative); Urine Nitrite Negative (Negative); Urine Protein Negative (Negative); Urine Specific Gravity 1.021 (1.010-1.030); Urine Urobilinogen Negative (Negative)
[2018-12-04] MEDS ORDERED: HYDROcodone/ACETAMIN 5-325 MG* 1 TAB PO ONE (00:26)
[2018-12-04 00:51] VITALS: BP 95/65
== END 2018-12-04 00:50 | disposition home or self-care (01) ==
LOC: ED 17:21
DX: N83.202 Unspecified ovarian cyst, left side (principal); F17.210 Nicotine dependence, cigarettes, uncomplicated
CPT/HCPCS: 36415; 76830; 80053; 81003; 83605; 83690; 84702; 85025; 86140; 99283; A9270-GY

== ENCOUNTER 2018-12-21 07:11 | Observation (INO) | payer MEDICAID ==
[~2018-12-21 07:11] MED LIST: Buffered Lidocaine 1% SYRIN* 1 ML/SYRINGE INTRADERM ONE; Lactated Ringers 1000 ML Bag* 1,000 ML IV SCH; Sodium Citrate/Citric Acid* 15 ML UDC PO ONE
[2018-12-21] MEDS ORDERED: Sodium Citrate/Citric Acid* 15 ML UDC ONE (07:26)
[2018-12-21] MEDS ORDERED: Buffered Lidocaine 1% SYRIN* 1 ML/SYRINGE INTRADERM ONE (08:00)
[2018-12-21 08:28] LABS: ABS Basophils 0 10^3/ul (0-0.2); ABS Eosinophils 0.1 10^3/ul (0-0.6); ABS Lymphocytes 2.4 10^3/ul (1.0-4.8); ABS Monocytes 0.6 10^3/ul (0-0.8); ABS Neutrophils 6.4 10^3/ul (1.5-7.7); ABS Nucleated RBC 0 10^3/ul; Eosinophil % 0.8 %; Hematocrit 43 % (35-47); Hemoglobin 14.3 g/dl (12.0-16.0); Lymphocyte % 25.1 %; Mean Corpuscular HGB Conc 34 g/dl (31-36); Mean Corpuscular Hemoglobin 31 pg (27-31); Mean Corpuscular Volume 93 fL (80-97); Mean Platelet Volume 9.2 fL (7.4-10.4); Nucleated Red Blood Cells % 0.1; Platelet Count 266 10^3/ul (150-450); Red Blood Count 4.57 10^6/ul (4.00-5.40); Red Cell Distribution Width 13 % (10.5-15); White Blood Count 9.5 10^3/ul (3.5-10.8)
[2018-12-21] MEDS ORDERED: Rocuronium* 10 MG/ML VIAL ONE (08:57)
[2018-12-21] MEDS ORDERED: Propofol* 10 MG/ML 20 ML BTL ONE (08:57)
[2018-12-21] MEDS ORDERED: Midazolam* 1 MG/ML 2 ML VIAL (2 MG) ONE (08:57)
[2018-12-21] MEDS ORDERED: fentaNYL* 50 MCG/ML 2 ML VIAL (100 MCG VIAL) ONE ×2 (08:57→10:34)
[2018-12-21] MEDS ORDERED: Bupivacaine 0.5% W/EPI SDV* 30 ML VIAL ONE (09:04)
[2018-12-21] MEDS ORDERED: Glycopyrrolate IV* 0.2 MG/ML 1 ML VIAL ONE (09:43)
[2018-12-21] MEDS ORDERED: Naloxone* 0.4 MG/ML 1 ML VIAL IV PRN (09:46)
[2018-12-21] MEDS ORDERED: DiMENhydriNATE IV* 50 MG/ML VIAL IV PUSH PRN (09:46)
[2018-12-21] MEDS: fentaNYL* 50 MCG/ML 2 ML VIAL (100 MCG VIAL) IV PRN ×2 (10:37→11:00)
--- NOTE | 2018-12-21 11:20 | OP ---
OPERATIVE REPORT: DATE OF OPERATION: 12/21/18 DATE OF : 89 SURGEON: Brent Christensen MD. CONVEYOR TENDER: Dr. Rose. ANESTHESIA: General endotracheal tube. PRE-OP DIAGNOSES: Left ovarian cyst and pelvic pain. POST-OP DIAGNOSES: Left ovarian cyst and pelvic pain plus multicystic right ovary. OPERATIVE PROCEDURE: Mini laparotomy, left ovarian cystectomy, and cautery of right ovary. FINDINGS: On laparotomy, the left ovary was enlarged with a cystic area of approximately 3 cm in siz e. The right ovary was also slightly enlarged but with multiple small cysts. No distinct cystic are a that was large enough and the fluid that was within it was clear and yellow. DESCRIPTION OF PROCEDURE: The patient identified, procedure identified as a mini laparotomy and ovar rhonda cystectomy. The patient was taken to the operating room, prepped and draped in the usual fashion in the dorsal lithotomy position under general anesthesia. A Aguilar catheter was placed and a sponge stick placed in the vagina. A small incision was made 2 cm above the pubic symphysis in the midline and carried down to fat, fascia, and peritoneum. The ovary was identified, brought up to the incisi on. The cystic area was identified. A small incision was made in the tunica and dissected around th e cyst using the Metzenbaum scissors. The whole cyst was excised in toto and sent for pathology. Th e ovarian base where the cyst was present was cauterized until good hemostasis was verified. A 3-0 P olysorb suture was used to close the space and a baseball stitch was used to close the tunica. Good hemostasis was verified. The fallopian tube appeared normal. The ovary was placed back in the abdominal cavity. The right ovary was removed out through the incision and inspected, found to have multiple cysts and slightly enlarged approximately 3 x 4 cm. An incision was made into an area that was felt to be cystic and only clear fluid was obtained and no cyst wall could be easily identified a nd certainly did not appear as a dermoid like. Several other small cysts were incised in order to dr ain them, but no dermoid was identified. This ovary was placed back in the abdominal cavity. Good h emostasis was verified. The fascia was then closed using 0 Polysorb in a running fashion. Good hemo stasis was verified in the subcutaneous layers and the skin was closed with 4-0 Monocryl in a subcuti cular fashion. All sponge and instrument counts were correct, and the patient returned to recover ro om in stable condition. [id number]/[facility] #: [id number]
[2018-12-21 11:22] VITALS: BP 106/63
[2018-12-21] MEDS ORDERED: HYDROmorphone INJ1* 1 MG/ML SYRINGE IV PRN (12:21)
[2018-12-21] MEDS ORDERED: Ondansetron INJ* 2 MG/ML VIAL IV PRN (12:22)
[2018-12-21] MEDS ORDERED: oxyCODONE/Acetamin 5/325 MG* TAB PO PRN (12:44)
[2018-12-21] MEDS ORDERED: Lactated Ringers 1000 ML Bag* 1,000 ML IV SCH (13:00)
[2018-12-21] MEDS ORDERED: Ibuprofen TAB* 600 MG PO SCH (13:00)
== END 2018-12-21 15:54 | disposition home or self-care (01) ==
LOC: OR 07:11 → SSU 12:03
PROVIDERS: ADMIT Obstetrics & Gynecology; ATTEND Obstetrics & Gynecology
DX: N83.202 Unspecified ovarian cyst, left side (principal); R10.2 Pelvic and perineal pain
CPT/HCPCS: 36415; 81025; 85025; 86850; 86900; 86901; 88305; 96374; 96375; A9270-GY; G0378; J2250; J2704; J3010

== ENCOUNTER 2019-03-16 11:59 | Emergency (ER) | payer MEDICAID, OTHER ==
[2019-03-16 12:17] VITALS: BP 118/58
--- NOTE | 2019-03-16 12:20 | UC ---
Skin Complaint HPI - HPI Summary HPI Summary: 28-year-old female presents with complaint of pain from sunburn that she sustained 5 days ago. She is fair complected and aldrich easily. She has had peeling of the skin and some oozing/weeping. She denies any fevers and states that she has tried aloe and topical lidocaine. The lidocaine caused burning discomfort. She denies any fever or other symptoms. - History of Current Complaint Time Seen by Provider: 03/16/19 12:05 Stated Complaint: SKIN COMPLAINT Hx Obtained From: Patient Hx Last Menstrual Period: 11/16/18 - Allergy/Home Medications Allergies/Adverse Reactions: Allergies Allergy/AdvReac Type Severity Reaction Status Date / Time bee venom protein (honey bee) Allergy Severe Anaphylatic Verified 03/16/19 12:08 Shock latex Allergy Severe Anaphylatic Verified 03/16/19 12:08 Shock blueberries Allergy Intermediate itchy Uncoded 03/16/19 12:08 throat PMH/Surg Hx/FS Hx/Imm Hx Previously Healthy: Yes Other History Of: Negative For: Anticoagulant Therapy - Surgical History Surgical History: Yes Surgery Procedure, Year, and Place: APPY 2004. "two cysts removed from my throat" - Family History Known Family History: Positive: None, Cardiac Disease, Hypertension, Diabetes - Social History Occupation: Employed Full-time Alcohol Use: None Substance Use Type: None Substance Use Comment - Amount & Last Used: Percocet for sciatic pain Smoking Status (MU): Light Every Day Tobacco Smoker Type: Cigarettes Amount Used/How Often: 4-5 cigs/day Length of Time of Smoking/Using Tobacco: 2013 Have You Smoked in the Last Year: Yes Household Exposure Type: Cigarettes - Immunization History Most Recent Influenza Vaccination: 07/08/14 Most Recent Tetanus Shot: 09/2016 Most Recent Pneumonia Vaccination: unk Review of Systems All Other Systems Reviewed And Are Negative: Yes Constitutional: Negative: Fever Skin: Positive: Other - Sunburn Eyes: Positive: Negative Musculoskeletal: Positive: Negative Physical Exam Triage Information Reviewed: Yes Appearance: Well-Appearing, No Pain Distress, Well-Nourished Eye Exam: Normal ENT: Positive: Hearing grossly normal Respiratory: Positive: Lungs clear Cardiovascular: Positive: RRR Musculoskeletal Exam: Normal Psychological Exam: Normal Skin Exam: Other - sunburn in the area of her upper chest, shoulders and upper back. There is no active weeping. There is evidence of areas that may have blistered and have peeled. No areas of concern for infection Course/Dx - Course Course Of Treatment: Sunburn which has largely healed at this point. The patient appears comfortable. She has been using ibuprofen and topical chills. I would offer a single painful now but patient is driving. There is no indication for further. No evidence for infection. Mostly first-degree with some areas of second- degree burn but again largely healed now 5 days out. - Diagnoses Provider Diagnosis: Sunburn of second degree Discharge - Sign-Out/Discharge Documenting (check all that apply): Patient Departure All imaging exams completed and their final reports reviewed: No Studies - Discharge Plan Condition: Improved Disposition: HOME Patient Education Materials: Sunburn (ED) Referrals: [facility] [Outside] [facility] [Outside] Additional Instructions: Continue with topical aloe or Solarcaine as needed. Chill these for comfort. Tylenol, ibuprofen as needed for discomfort. Return if worse, concern for infection, or other concerns. Telfa patches can be used as shown if you're shirt is bothering you in certain areas. - Billing Disposition and Condition Condition: IMPROVED Disposition: Home
== END 2019-03-16 12:15 | disposition home or self-care (01) ==
LOC: UCEAST 11:59
DX: L55.1 Sunburn of second degree (principal); F17.210 Nicotine dependence, cigarettes, uncomplicated; Z91.040 Latex allergy status
CPT/HCPCS: 99211; G0463

== ENCOUNTER 2019-05-02 12:48 | Emergency (ER) | payer OTHER ==
--- OUTSIDE RECORDS SUMMARY | 2019-05-02 12:57 | XMS REPORT | Continuity of Care Document ---
:1990 External Reference #:[id number] Author Name Hollie Cisneros MD Address [address] [place] [address] Care Team Providers Name Role Phone Jalen Ayoub M.D. Primary Care Physician Unavailable Payers Date Identification Numbers Payment Provider Subscriber Policy Number: [id number] [facility] Min Fierro PayID: [id number] [address] [place] [address] Policy Number: [id number] Medicaid [place] Min Fieror PayID: [id number] [address] [place] [address] Problems Active Problems Provider Date Benign neoplasm of ovary Brent Christensen M.D. Onset: 04/02/2019 Resolved Problems Cyst of ovary Luiza Dave NP Onset: 10/04/2013 Resolved: 01/24/2014 Family History Date Family Member(s) Observation Comments Father A&W Mother Hepatitis C Mother Cirrhosis Children 2 First Daughter Asthma Second Daughter Asthma Siblings None no full siblings. 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 [employer] Cigarette Use Current Cigarette Smoker 4-5 x day ETOH Use Denies alcohol use Tobacco Use Start: Unknown Patient is a current smoker, smokes every day Recreational Drug Use Denies Drug Use Smoking Status Reviewed: 07/10/19 Patient is a current smoker, smokes every day Exercise Type/Frequency Exercises regularly Seat Belt/Car Seat Always uses seat belt Currently Active Patient is currently sexually active Contraceptive Methods None STD's Herpes Cold sores ESVIN: 08/06/2014 Estimated Date of Delivery Based on LMP Allergies, Adverse Reactions, Alerts Active Allergies Reaction Severity Comments Date NKDA 09/20/2011 Latex Severe 12/24/2013 Blueberries Mild 12/24/2013 Bee Sting Severe 12/24/2013 Medications Active Medications SIG Qnty Indications Ordering Provider Date Vitamin 1 po qd Unknown History Medications Metronidazole 1 tab by mouth 14tabs Jt Pineda, 04/02/2019 - 500mg twice a day CN 04/09/2019 Tablets Metronidazole 1 tab by mouth 14tabs Zohra Doll, 02/06/2019 - 500mg twice a day CN 02/20/2019 Tablets Diflucan take 1 by mouth 2tabs Zohra Doll, 02/06/2019 - 150mg Tablets for yeast. repeat CN 02/20/2019 x 1 as needed Bactrim DS tab1 by mouth 10tabs Brent Manning 12/27/2018 - 800-160mg twice a day Tara Christensen 12/16/2018 Tablets Diflucan take 1 tablet by 2tayesenia Manning 12/27/2018 - 150mg Tablets mouth once, february Tara Christensen 12/16/2018 repeat in 3 days if needed Hydrocodone 1 by mouth every 6 8tabs Lisandra Handley, 12/24/2018 - Bitartrate/Acetaminop hours as needed [facility] 12/16/2018 hen for pain 5-325mg Tablets Oxycodone-Acetaminoph 1 by mouth q4hr 14tabs Z01.818 Marlene Avalos, 2018 - en CN 12/16/2018 5-325mg Tablets Ibuprofen take one tab by 30tabs Z01.818 Marlene Avalos, 11/27/2018 - 600mg Tablets mouth every 6 CN 04/02/2019 hours as needed pain Miconazole 3 1 applicator per 25gm Marlene Avalos, 10/21/2016 - 4% Cream vagina hs x 3 CN 10/27/2016 Epipen 2-Reddy use as directed. 2unjoaquin Sagastume 06/24/2016 - SABRINA Tello 04/02/2019 0.3mg/0.3ML Solution Auto-Inject Promethazine HCL take one tablet by 30tabs Tanika 05/25/2016 - 12.5mg mouth every 4-6 SABRINA Tello 10/05/2016 Tablets hours as needed for nausea. Flagyl 1 by mouth two 14tabs Shaniqua 03/22/2016 - 500mg Tablets times per day x 7 MD Natan 06/16/2016 days No Active Medications Unknown 08/24/2015 - 08/24/2015 Flagyl 1 by mouth two 14tabs Jt Pineda, 08/24/2015 - 500mg Tablets times per day x 7 CNM 09/07/2015 days Diflucan take 1 by mouth 2tabs Jt Pineda, 08/24/2015 - 150mg Tablets for yeast. repeat CN 09/07/2015 x 1 as needed Metronidazole take one tab by 14tabs Digna Cummings, 05/20/2015 - 500mg mouth twice a day CN 08/24/2015 Tablets for 7 days Metrogel-Vaginal 1 applicator every 1TX 616.10 Samiraapple Castillo, 05/07/2015 - 0.75% night at bedtime x ANP-C 05/12/2015 Gel 5 days Diflucan 1 by mouth times 1 1tabs 616.10 Samira Castillo, 05/07/2015 - 150mg Tablets day ANP-C 08/24/2015 No Active Medications Samira Castillo, 05/07/2015 - ANP-C 05/07/2015 No Active Medications Unknown 03/13/2015 - 03/13/2015 Metronidazole 1 by mouth twice a 14tabs Hollie Cisneros 03/13/2015 - 500mg trell ESTRADA 04/01/2015 Tablets Clindamycin HCL 1 tab by mouth 14caps Jt Pineda, 06/25/2014 - 300mg twice a day x 7 CNM 07/02/2014 Capsules days Clindamycin HCL 1 tab by mouth 14caps Digna Cummings, 05/15/2014 - 300mg twice a day x 7 CNM 05/27/2014 Capsules days Keflex take 1 cap by 14caps Chata Valle, 04/17/2014 - 500mg Capsules mouth twice a day CNM 05/27/2014 x 7 days Metronidazole take one tab by 14tabs Digna Cummings, 04/13/2014 - 500mg mouth twice a day [facility] 05/27/2014 Tablets for 7 days Metronidazole take one tab by 14tayesenia Pineda, 2014 - 500mg mouth twice a day [facility] 03/31/2014 Tablets for 7 days Metronidazole take one tab by 14tayesenia Cisneros, 03/06/2014 - 500mg mouth twice a day 2014 Tablets for 7 days Terazol 7 use one applicator 45g Jt Pineda, 02/19/2014 - 0.4% Cream daily (best at [facility] 02/26/2014 night) x 7 days for treatment vaginal yeast Epipen 2-Reddy use as directed as 1units Jt Pineda, 02/19/2014 - needed [facility] 05/27/2014 0.3mg/0.3ML Solution Auto-Inject Ondansetron Odt 1-2 tablet po 30tabs Brent Manning 12/12/2013 - 4mg q6-8hrs prn nausea Tara Christensen 02/19/2014 Tablets Dispers No Active Medications Unknown 12/09/2013 - 12/09/2013 Zofran 1 po q 6-8 hours 20tabs Jt Pineda, 12/09/2013 - 4mg Tablets prn nausea [facility] 12/12/2013 Naproxen Ec 1 tab bid prn pain 30tabs Shaniqua 10/04/2013 - 500mg MD Natan 12/09/[address] Complete Unknown - 10/03/2013 Vitamin B-12 Unknown - Natural 10/03/2013 Vitamin C Unknown - 10/03/2013 Vitamins 1 po qd 90tabs Unknown - 03/13/2015 Tablets Beepropolils Unknown - 04/02/2019 Medications Administered in Office Medication SIG Qnty Indications Ordering Provider Date PT SCRN Tbco Id as Non User Hollie Cisneros MD 04/24/2019 Injection Immunizations CPT Code Status Date Vaccine Lot # [id number] Given 10/05/2016 Tetnus, Diptheria Toxoids And Acellular Pertussis, [id number] PT > 7Yrs Old [id number] Given 07/08/2014 Influenza Virus Vaccine 3Years Or Older [id number] Given 05/15/2014 Tetnus, Diptheria Toxoids And Acellular Pertussis, [id number] PT > 7Yrs Old Vital Signs Date Vital Result Comment 04/24/2019 10:36am BP Systolic 128 mmHg BP Diastolic 76 mmHg Height 61.5 inches 5'1.50" Weight 132.00 lb BMI (Body Mass Index) 24.5 kg/m2 Last Menstrual Period 7300943 2 Parity 2 01/10/2019 8:13am BP Systolic 114 mmHg BP Diastolic 68 mmHg Height 61.5 inches 5'1.50" Weight 138.00 lb BMI (Body Mass Index) 25.6 kg/m2 Last Menstrual Period 6209755 2 Parity 2 12/28/2018 3:40pm BP Systolic 106 mmHg BP Diastolic 62 mmHg Body Temperature 98.3 F Height 61.5 inches 5'1.50" Weight 137.00 lb BMI (Body Mass Index) 25.5 kg/m2 Last Menstrual Period 9559865 2 Parity 2 11/27/2018 11:19am BP Systolic 110 mmHg BP Diastolic 62 mmHg Height 61.5 inches 5'1.50" Weight 146.00 lb BMI (Body Mass Index) 27.1 kg/m2 Last Menstrual Period 6048503 2 Parity 2 06/24/2016 8:02am BP Systolic 102 mmHg BP Diastolic 64 mmHg Height 61.5 inches 5'1.50" Weight 120.00 lb BMI (Body Mass Index) 22.3 kg/m2 Last Menstrual Period 8311506 2 Parity 1 05/07/2015 11:06am BP Systolic 104 mmHg BP Diastolic 68 mmHg Height 61.5 inches 5'1.50" Weight 112.00 lb BMI (Body Mass Index) 20.8 kg/m2 Last Menstrual Period 2376066 1 Parity 1 03/13/2015 1:16pm BP Systolic 116 mmHg BP Diastolic 72 mmHg Height 61.5 inches 5'1.50" Weight 117.00 lb BMI (Body Mass Index) 21.7 kg/m2 Last Menstrual Period 8915321 1 Parity 1 09/01/2014 11:08am BP Systolic 98 mmHg BP Diastolic 62 mmHg Height 62 inches 5'2" Weight 126.00 lb BMI (Body Mass Index) 23.0 kg/m2 Last Menstrual Period [id number] [facility] 07/17/14 1 Parity 1 12/24/2013 11:23am BP Systolic 104 mmHg BP Diastolic 56 mmHg Height 61.25 inches 5'1.25" Weight 130.00 lb BMI (Body Mass Index) 24.4 kg/m2 Last Menstrual Period 7786438 1 Parity 0 12/18/2013 2:09pm BP Systolic 110 mmHg BP Diastolic 66 mmHg Height 61.25 inches 5'1.25" Weight 128.00 lb BMI (Body Mass Index) 24.0 kg/m2 Last Menstrual Period 3757932 1 Parity 0 10/04/2013 1:27pm BP Systolic 108 mmHg BP Diastolic 62 mmHg Height 61.25 inches 5'1.25" Weight 125.00 lb BMI (Body Mass Index) 23.4 kg/m2 Last Menstrual Period [id number] 0 09/20/2011 8:32am BP Systolic 110 mmHg BP Diastolic 69 mmHg Height 61 inches 5'1" Weight 150.00 lb BMI (Body Mass Index) 28.3 kg/m2 Last Menstrual Period 8162165 0 Results Test Date Facility Test Result H/L Range Note Laboratory test 04/24/2019 [facility] Gardnerella/Yea <pending> [place] [address] st: Vaginal Dna [phone] Laboratory test 12/21/2018 [facility] Surgical SEE RESULT 1 [place] [address] Pathology BELOW [phone] CBC Auto Diff 12/21/2018 [facility] White Blood 9.5 10^3/uL N 3.5-10.8 [place] [address] Count [phone] Red Blood Count 4.57 10^6/uL N 4.00-5.40 Hemoglobin 14.3 g/dL N 12.0-16.0 Hematocrit 43 % N 35-47 Mean Corpuscular Volume 93 fL N 80-97 Mean Corpuscular Hemoglobin 31 pg N 27-31 Mean Corpuscular HGB Conc 34 g/dL N 31-36 Red Cell Distribution Width 13 % N 10.5-15 Platelet Count 266 10^3/uL N 150-450 Mean Platelet Volume 9.2 fL N 7.4-10.4 Abs Neutrophils 6.4 10^3/uL N 1.5-7.7 Abs Lymphocytes 2.4 10^3/uL N 1.0-4.8 Abs Monocytes 0.6 10^3/uL N 0-0.8 Abs Eosinophils 0.1 10^3/uL N 0-0.6 Abs Basophils 0 10^3/uL N 0-0.2 Abs Nucleated RBC 0 10^3/uL Granulocyte % 67.0 % Lymphocyte % 25.1 % Monocyte % 6.6 % Eosinophil % 0.8 % Basophil % 0.5 % Nucleated Red Blood Cells % 0.1 Type And Screen 12/21/2018 [facility] Patient [place] [address] [phone] Antibody Screen NEGATIVE Laboratory test 11/27/2018 [facility] Cytology SEE RESULT 2 [place] [address] BELOW [phone] GC/Chlamydia 11/27/2018 [facility] Chlamydia Negative [place] [address] trachomatis Rna [phone] Neisseria gonorrhoeae (GC) Rna Negative Negative Laboratory test 12/07/2016 [facility] Rupture of Positive N 3 finding [place] [id number] Membranes [phone] Laboratory test 12/02/2016 [facility] Group B Strep SEE RESULT 4, 5 [place] [address] Culture Screen BELOW [phone] Laboratory test 11/14/2016 [facility] Rupture of Negative N 6 [place] [address] Membranes [phone] Urinalysis 11/14/2016 [facility] [place] [address] [phone] Urine Appearance Clear N Urine Specific Breeding 1.004 Low 1.010-1.030 Urine pH 7.0 N 5-9 Urine Urobilinogen Negative N Negative Urine Ketones Negative N Negative Urine Protein Negative N Negative Urine Leukocytes Negative N Negative Urine Blood Negative N Negative Urine Nitrite Negative N Negative Urine Bilirubin Negative N Negative Urine Glucose Negative N Negative Laboratory test 10/05/2016 [facility] Glucose 1 HR 90 mg/dL N 70-160 7 [place] [address] Post Prandial [phone] CBC With No Diff 10/05/2016 [facility] White Blood 11.0 High 3.5-10.8 [place] [address] Count 10^3/uL [phone] Red Blood Count 3.18 10^6/uL Low 4.0-5.4 Hemoglobin 10.0 g/dL Low 12.0-16.0 Hematocrit 30 % Low 35-47 Mean Corpuscular Volume 94 fL N 80-97 Mean Corpuscular Hemoglobin 31 pg N 27-31 Mean Corpuscular HGB Conc 33 g/dL N 31-36 Red Cell Distribution Width 13 % N 10.5-15 Platelet Count 212 10^3/uL N 150-450 Mean Platelet Volume 9 um3 N 7.4-10.4 Urine Culture And 09/14/2016 [facility] Urine Culture SEE RESULT 8 [place] [address] BELOW [phone] Laboratory test 09/14/2016 [facility] Gardnerella/Yeast: SEE RESULT 9 [place] [address] Vaginal Dna BELOW [phone] Sequential 08/15/2016 [facility] Interpretation SEE BELOW 10 Integreated SCRN 2 [place] Risk For Ontd <1:5000 Age Risk Down Syndrome 1:1000 MARQUES Down Syndrome Risk 1:1400 <1:270 MARQUES Trisomy 18 Risk <1:5000 <1:100 Calculated Gestational Age 19.9 11 Afp,Serum 42.3 ng/mL Afp Mom 0.66 12 HCG,Serum 31.9 IU/mL HCG Mom 1.37 Estriol,Free 1.27 ng/mL Estriol Mom 0.61 Inhibin A,Dimeric 435 pg/mL Inhibin A Mom 2.10 Shama-A 1599.3 ng/mL 13 Shama-A Mom 2.01 NT Mom 1.02 14 Referring Physician Name SAMIRA THA Referring Physician Phone [phone] Referring Physician Npi NG Specimen # From Part 1 [id number] Date Of 1990 Collection Date 08/15/2016 Maternal Weight 120 lbs Est'd Date Of Delivery 01/02/2017 Nuchal Translucency 1.4 mm [place] Rump Length 59 mm Ultrasound Date 06/23/2016 Nasal Bone NA Mother's Ethnic Origin Insulin Depend Diabetic NO Repeat Specimen NO Number Of Fetuses 1 HX Of Neural Tube Defects NO Twin B Nasal Bone NG 15 Laboratory test 08/15/2016 [facility] Rubella Equivocal N Immune 16 [place] [address] Screen IU/mL [phone] Urine Culture 06/24/2016 [facility] Urine SEE RESULT 17 [place] [address] Culture BELOW Sensitivities [phone] Lead 06/24/2016 [facility] Lead <1.0 g/dL N 0.0-4.9 18 [place] [address] [phone] HIV 1/2 AB 06/24/2016 [facility] HIV 1 2 Nonreactive N Nonreactive 19 [place] [address] Antibody [phone] Type And Screen 06/24/2016 [facility] [place] [address] Blood Type [phone] Antibody Screen NEGATIVE N CBC With No 06/24/2016 [facility] White Blood 9.2 10^3/uL N 3.5-10.8 [place] [address] Count [phone] Red Blood Count 4.14 10^6/uL N 4.0-5.4 Hemoglobin 12.7 g/dL N 12.0-16.0 Hematocrit 38 % N 35-47 Mean Corpuscular Volume 92 fL N 80-97 Mean Corpuscular Hemoglobin 31 pg N 27-31 Mean Corpuscular HGB Conc 33 g/dL N 31-36 Red Cell Distribution Width 13 % N 10.5-15 Platelet Count 250 10^3/uL N 150-450 Mean Platelet Volume 9 um3 N 7.4-10.4 PNL 06/24/2016 [facility] Rubella Equivocal IU/mL N Immune 20 [place] [address] Screen [phone] Hemoglobin A1c 4.5 % N Less than 6.0 21 Hepatitis B Surface Ag Nonreactive N Nonreactive 22 Syphillis Igg W/Reflex RPR Nonreactive N Nonreactive 23 Laboratory test 06/24/2016 [facility] Trichomonas Negative N Negative 24 [place] [address] vaginalis Rna [phone] GC/Chlamydia 06/24/2016 [facility] Chlamydia Negative [place] [address] trachomatis Rna [phone] Neisseria gonorrhoeae (GC) Rna Negative N Negative Laboratory test 06/24/2016 [facility] Cytology SEE RESULT 25 [place] [address] BELOW [phone] Sequential 06/24/2016 [facility] Interpretation SEE BELOW 26 Integrated SCRN 1 [place] Age Risk Down Syndrome 1:760 MARQUES Down Syndrome Risk IN PROCESS <1:50 MARQUES Trisomy 18 Risk IN PROCESS <1:100 Calculated Gestational Age 12.4 27 Shama-A 1599.3 ng/mL 28 Shama-A Mom 2.01 HCG,Serum 183.1 IU/mL HCG Mom 1.83 NT Mom 1.02 29 Referring Physician Name ALFA 30 Referring Physician Phone [phone] Referring Physician Npi [id number] 32 Date Of 1990 33 Collection Date 06/24/2016 34 Maternal Weight 120 lbs 35 Est'd Date Of Delivery 01/02/2017 36 ESVIN Determined By US 37 Mother's Ethnic Origin 38 Number Of Fetuses NOT GIVEN 39 Insulin Depend Diabetic NO 40 Repeat Specimen NO 41 HX Of Neural Tube Defects NO 42 Prev Down Synd NO 43 Donor Egg NO 44 Donor Age:Egg Retrieval NA 45 Ultrasound Date 06/23/2016 46 Insurance Investigator's Name STEPHON 47 NTQR Insurance Investigator Id# [id number] NTQR Location Id# [id number] NTQR Reading Phys Id# [id number] FMF Insurance Investigator Id# NA 51 [place] Rump Length 59 mm 52 Nuchal Translucency 1.4 mm 53 Nasal Bone NA 54 If Twins NO 55 Twin B CRL NG mm 56 Twin B NT NG mm 57 Twin B Nasal Bone NG 58 Laboratory 06/24/2016 [facility] Gardnerella/Yeast: SEE RESULT 59 [place] [address] Vaginal Dna BELOW [phone] GC/Chlamydia 03/13/2015 [facility] Chlamydia Negative [place] [address] trachomatis Rna [phone] Neisseria gonorrhoeae (GC) Rna Negative N Negative 60 Laboratory 03/13/2015 [facility] Trichomonas Negative N Negative 61 [place] [address] Vaginalis Rna [phone] HIV 1/2 AB 03/13/2015 [facility] HIV 1 2 Nonreactive N Nonreactive [address] [place] [address] Antibody [phone] RPR 03/13/2015 [facility] Pediatric/[place] [address] rnal [phone] Syphilis IgG Nonreactive N Nonreactive 63 RPR TNP N Nonreactive RPR Titer TNP N Laboratory test 03/13/2015 [facility] Hepatitis C Nonreactive N Nonreactive [address] [place] [address] Antibody [phone] Urine Culture 07/04/2014 [facility] Urine Culture (SEE NOTE) [address] [place] [address] Sensitivities [phone] Urine Drug SCR 07/04/2014 [facility] Amphetamine None Detected N None Detect ED & [place] [address] Ur Screen Clinic [phone] Barbiturates Urine Screen None Detected N None Detect Benzodiazepine Urine Screen None Detected N None Detect Urine Cannabinoids Screen None Detected N None Detect Urine Cocaine Screen None Detected N None Detect Urine Opiates Screen None Detected N None Detect Urine Phencyclidine Screen None Detected N None Detect 66 Urinalysis Profile 07/04/2014 [facility] [place] [address] [phone] Urine Appearance Cloudy N Urine Specific Breeding 1.014 N 1.010-1.030 Urine pH 7.0 N 5-9 Urine Urobilinogen Negative N Negative Urine Ketones Negative N Negative Urine Protein Negative N Negative Urine Leukocytes 3+ Abnormal Negative Urine Blood 3+ Abnormal Negative Urine Nitrite Negative N Negative Urine Bilirubin Negative N Negative Urine Glucose Negative N Negative Urine White Blood Cell 2+(11-20/hpf) Abnormal Absent Urine Red Blood Cell Trace N Absent Urine Bacteria Absent N Absent Urine Squamous Epithelial Cell Present Abnormal Absent CBC With No 06/25/2014 [facility] White Blood 12.5 10^3/uL High 4.8-10.8 [place] [address] Count [phone] Red Blood Count 3.43 10^6/uL Low 4.0-5.4 Hemoglobin 10.7 g/dL Low 12.0-16.0 Hematocrit 31 % Low 35-47 Mean Corpuscular Volume 90 fL N 80-97 Mean Corpuscular Hemoglobin 31 pg N 27-31 Mean Corpuscular HGB Conc 35 g/dL N 31-36 Red Cell Distribution Width 12 % N 10.5-15 Platelet Count 238 10^3/uL N 150-450 Mean Platelet Volume 8 um3 N 7.4-10.4 Urine Culture And 06/25/2014 [facility] Urine Culture (SEE NOTE ) [address] [place] [address] [phone] Type And Screen 06/25/2014 [facility] [place] [address] Type [phone] Antibody Screen NEGATIVE N Urinalysis Profile 06/25/2014 [facility] [place] [address] [phone] Urine Appearance Clear N Urine Specific Breeding 1.005 Low 1.010-1.030 Urine pH 7.0 N 5-9 Urine Urobilinogen Negative N Negative Urine Ketones Negative N Negative Urine Protein Negative N Negative Urine Leukocytes Trace Abnormal Negative Urine Blood Negative N Negative Urine Nitrite Negative N Negative Urine Bilirubin Negative N Negative Urine Glucose Negative N Negative Urine White Blood Cell Trace N Absent Urine Red Blood Cell Trace N Absent Urine Bacteria Absent N Absent Urine Squamous Epithelial Cell Present Abnormal Absent Laboratory test 05/15/2014 [facility] Glucose 1 HR 105 mg/dL N 70-160 [place] [address] Post Prandial [phone] CBC With No Diff 05/15/2014 [facility] White Blood 10.7 N 4.8- 10.8 [place] [address] Count 10^3/uL [phone] Red Blood Count 3.35 10^6/uL Low 4.0-5.4 Hemoglobin 10.7 g/dL Low 12.0-16.0 Hematocrit 31 % Low 35-47 Mean Corpuscular Volume 93 fL N 80-97 Mean Corpuscular Hemoglobin 32 pg High 27-31 Mean Corpuscular HGB Conc 35 g/dL N 31-36 Red Cell Distribution Width 12 % N 10.5-15 Platelet Count 217 10^3/uL N 150-450 Mean Platelet Volume 9 um3 N 7.4-10.4 Herpes Simplex 05/15/2014 [facility] Herpes Simplex Positive N Negative Type 1&2 [place] [address] Virus I IgG AB [phone] Herpes Simplex Virus II IgG AB Positive N Negative 68 Herpes Simplex 05/15/2014 [facility] Herpes Simplex Negative N Negative 69 Type 1&2 [place] [address] Type 1 2 IgM [phone] Urine Culture 05/15/2014 [facility] Urine Culture (SEE NOTE) [address] [place] [address] Sensitivities [phone] Urine Drug SCR 04/13/2014 [facility] Amphetamine Ur None N None Detect ED & [place] [address] Screen Detected [phone] Barbiturates Urine Screen None Detected N None Detect Benzodiazepine Urine Screen None Detected N None Detect Urine Cannabinoids Screen None Detected N None Detect Urine Cocaine Screen None Detected N None Detect Urine Opiates Screen None Detected N None Detect Urine Phencyclidine Screen None Detected N None Detect 71 Urinalysis Profile 04/13/2014 [facility] [place] [address] [phone] Urine Appearance Cloudy N Urine Specific Breeding 1.004 Low 1.010-1.030 Urine pH 7.0 N 5-9 Urine Urobilinogen Negative N Negative Urine Ketones Negative N Negative Urine Protein Negative N Negative Urine Leukocytes Trace Abnormal Negative Urine Blood Negative N Negative Urine Nitrite Negative N Negative Urine Bilirubin Negative N Negative Urine Glucose Negative N Negative Urine White Blood Cell Trace N Absent Urine Red Blood Cell Trace N Absent Urine Bacteria 1+ Abnormal Absent Urine Squamous Epithelial Cell Present Abnormal Absent Urine Culture And 04/13/2014 [facility] Urine Culture (SEE NOTE ) 72 [place] [address] [phone] Rubella AB Igg 02/19/2014 [facility] Rubella AB (Igg) 1.61 73 Sequential 02/19/2014 [facility] Interpretation SEE BELOW 74 Integreated SCRN 2 [place] Risk For Ontd <1:5000 Age Risk Down Syndrome 1:1100 [facility] [place] Risk <1:5000 <1:270 [facility] Trisomy 18 Risk <1:5000 <1:100 Calculated Gestational Age 16.1 75 Afp,Serum 34.6 NG/ML Afp Mom 0.85 76 HCG,Serum 27.9 IU/mL HCG Mom 1.01 Estriol,Free 0.89 NG/ML Estriol Mom 1.45 Inhibin A,Dimeric 514 pg/mL Inhibin A Mom 2.77 Shama-A 2349 NG/ML Shama-A Mom 2.30 NT Mom 1.13 77 Referring Physician Name TETE Referring Physician Phone [phone] Referring Physician Npi [id number] Specimen # From Part 1 [id number] Date Of 1990 Collection Date 02/19/2014 Maternal Weight 130 LBS Est'd Date Of Delivery 08/04/2014 Nuchal Translucency 1.6 MM [place] Rump Length 62 MM Ultrasound Date 01/24/2014 Nasal Bone NOT GIVEN Mother's Ethnic Origin Insulin Depend Diabetic NO Repeat Specimen NO Number Of Fetuses 1 HX Of Neural Tube Defects NO Twin B Nasal Bone NOT GIVEN Sequential Integrated SCRN 1 [place] 01/24/2014 [facility] Interpretation SEE BELOW 78 Age Risk Down Syndrome 1:810 MARQUES Down Syndrome Risk IN PROCESS <1:50 MARQU[place] Trisomy 18 Risk IN PROCESS <1:100 Calculated Gestational Age 12.4 79 Shama-A 2349 NG/ML Shama-A Mom 2.30 HCG,Serum 68.4 IU/mL HCG Mom 1.10 NT Mom 1.13 80 Referring Physician Name BRENT LOUIS Referring Physician Phone [phone] Referring Physician Npi [id number] Date Of 1990 Collection Date 01/24/2014 Maternal Weight 130 LBS Est'd Date Of Delivery 08/04/2014 ESVIN Determined By U Mother's Ethnic Origin Number Of Fetuses 1 Insulin Depend Diabetic NO Repeat Specimen NO HX Of Neural Tube Defects NO Brief History (NTD) NO Prev Down Synd NO Donor Egg NO Donor Age:Egg Retrieval NO Ultrasound Date 01/24/2014 Insurance Investigator's Name STEPHON NTQR Insurance Investigator Id# [id number] NTQR Location Id# [id number] NTQR Reading Phys Id# [id number] FMF Insurance Investigator Id# NG [place] Rump Length 62 MM Nuchal Translucency 1.6 MM Nasal Bone NOT GIVEN If Twins NOT GIVEN Twin B CRL NOT GIVEN MM Twin B NT NOT GIVEN MM Twin B Nasal Bone NOT GIVEN Laboratory 01/24/2014 [facility] Hemoglobin 4.6 % Less than 6.0 [address] [place] [address] A1c [phone] HIV 1/2 AB 01/24/2014 [facility] HIV 1 2 Nonreactive Nonreactive [address] [place] [address] Antibody [phone] Laboratory 01/24/2014 [facility] Hepatitis B Nonreactive Nonreactive [address] [place] [address] Surface [phone] Antigen Rubella Screen Equivocal IU/mL Immune RPR 01/24/2014 [facility] Syphilis [place] [address] [phone] RPR Nonreactive Nonreactive RPR Titer TNP Pediatric/Maternal YES Laboratory 12/27/2013 [facility] Beta HCG > [phone] High 0.0 -5.0 84 [place] [address] Quantitative IU/mL [phone] Type And 12/27/2013 [facility] Patient [place] [address] Type [phone] Antibody Screen NEGATIVE CBC Auto Diff 12/27/2013 [facility] White Blood 10.6 10^3/uL 4.8-10.8 [place] [address] Count [phone] Red Blood Count 3.99 10^6/uL Low 4.0-5.4 Hemoglobin 12.6 g/dL 12.0-16.0 Hematocrit 36 % 35-47 Mean Corpuscular Volume 91 fL 80-97 Mean Corpuscular Hemoglobin 32 pg High 27-31 Mean Corpuscular HGB Conc 35 g/dL 31-36 Red Cell Distribution Width 12 % 10.5-15 Platelet Count 226 10^3/uL 150-450 Mean Platelet Volume 9 um3 7.4-10.4 Abs Neutrophils 7.3 10^3/uL 1.5-7.7 Abs Lymphocytes 2.4 10^3/uL 1.0-4.8 Abs Monocytes 0.8 10^3/uL 0-0.8 Abs Eosinophils 0.1 10^3/uL 0-0.6 Abs Basophils 0.1 10^3/uL 0-0.2 Abs Nucleated RBC 0 10^3/uL Granulocyte % 68.3 % 38-83 Lymphocyte % 22.4 % Low 25-47 Monocyte % 7.8 % 1-9 Eosinophil % 1.0 % 0-6 Basophil % 0.5 % 0-2 Nucleated Red Blood Cells % 0 Laboratory test 12/24/2013 [facility] Cytology RUN DATE: [address] [place] [address] 12/26/ <SEE [phone] NOTE> Thyroid Function 09/20/2011 [facility] TSH,Sensitive 1.5 mIU/L 0.3-5. [address] [place] [address] 0 [phone] 1 SEE RESULT BELOW Name: MIN FIERRO : [address]: Brent Christensen MD Acct: [id number] Unit: [id number] AGE: 28 Location: [facility] [id number] Re12/21/18 Dis: 12/21/18 SEX: F Status: DIS Dante SPEC: [id number] TERELL: 12/21/18-[address] [facility] [address]: Brent Christensen MD REQ: [id number] RECD: 12/21/18 STATUS: SOUT _ ORDERED: LEVEL 4 FINAL DIAGNOSIS Ovary, left, excision: -- Mature cystic teratoma (3 cm). PRE-OPERATIVE DIAGNOSIS Left ovarian cyst GROSS DESCRIPTION The specimen is received in formalin labeled, Left Ovarian Cyst, and consists of a 3.0 x 2.8 x 2.5 cm intact unilocular cyst. The outer surface is predominantly smooth dusky corral-white with a few corral-pink fibromembranous adhesions. The cyst contains gelatinous to friable corral-white material admixed with dusky opaque corral fluid. There is a 1.6 x 1.2 x 0.8 cm corral-pink rubbery hard nodule adherent to the wall. The remaining wall averages less than 0.1 cm. Director [employer] sections, three cassettes. Signed by and Reported on: Anjum Anderson MD 09/03 1501 END OF REPORT DEPARTMENT OF PATHOLOGY, [address] [place] [address] Anjum Anderson M.D. Director [facility] # [id number] 2 SEE RESULT BELOW Name: MIN FIERRO : [address]: Brent Christensen MD Acct: [id number] Unit: [id number] AGE: 28 Location: [facility] Re11/27/18 SEX: F Status: REG REF SPEC: [id number] TERELL: 11/27/18-[address] [facility] [address]: Brent Christensen MD REQ: [id number] RECD: 11/27/18 STATUS: SOUT _ ORDERED: TP IMAGE ANALYS COMMENTS: [id number] Negative for Intraepithelial lesion or Malignancy A. Ectocervical/Endocervical Specimen Adequacy: Satisfactory of evaluation Transformation zone component not identified Patient Information: HPV: Thin Layer Pap Test w/reflex to high risk HPV RNA testing when ASCUS Actual Specimen Date: 11/27/18 Last Menstrual Date: 11/16/18 Signed by and Reported on: JAQUAN Lynch(ASCP) 0150 This Pap test was evaluated with the assistance of the APERA BAGSp Test Imaging System. Due to cytologic findings at the rag boiler microscope, comprehensive manual rescreening by a Radar Operator may be required. The Pap Smear is a screening test designed to aid in the detection of premalignant and malignant conditions of the uterine cervix. It is not a diagnostic procedure and should not be used as the sole means of detecting cervical cancer. Both false- positive and false- negative reports do occur. Depending on your risk status, a Pap smear should be obtained and evaluated every 1-3 years. END OF REPORT DEPARTMENT OF PATHOLOGY, [address] [place] [address] Ajnum Anderson M.D. Director [facility] # [id number] 3 A POSITIVE result indicates probable membrane rupture. 4 [id number] 5 SEE RESULT BELOW Name: MIN FIERRO : [address]: Trupti STINSON Acct: [id number] Unit: [id number] AGE: 26 Location: [facility] Re12/02/16 SEX: F Status: REG REF SPEC: [id number] TERELL: 12/02/16-[address]: Trupti Avalos [facility] REQ: [id number] RECD: 12/02/16 STATUS: COMP _ SOURCE: CER/VAG/RE SPDESC: ORDERED: Grp B Strp Scrn COMMENTS: [id number] QUERIES: Is Patient Penicillin Allergic? N Is patient penicillin allergic and/or sensitivities needed? N Provider Requisition # [id number]_ Procedure Result Reported Site Group B Strep Culture Screen Final 12/04/16- 1243 ML Group B Strep Screen Positive Organism 1 STREP GROUP B Susceptibility testing of penicillins and other B-lactams approved by FDA for treatment of Streptococcus pyogenes (Group A Strep) and Streptococcus agalactiae (Group B Strep) is not necessary for clinical purposes and need not be done routinely, since as with vancomycin, resistant strains have not been recognized. (CLSI W695-M70;p.66) Positive isolates will be saved for one week. Please call the Microbiology Laboratory if further susceptibility testing is needed. * ML - MAIN LAB ([facility]) . END OF REPORT * ML=Testing performed at Main Lab DEPARTMENT OF PATHOLOGY, [address] [place] [address] Anjum Anderson M.D. Director [facility] # [id number] 6 A NEGATIVE results indicates there is no evidence of membrane rupture. 7 [id number] 8 SEE RESULT BELOW Name: MIN FIERRO : [address]: Tanika ROBLES Acct: [id number] Unit: [id number] AGE: 26 Location: [facility] Re09/14/16 SEX: F Status: REG REF SPEC: [id number] TERELL: 09/14/[address]: Tanika ROBLES REQ: [id number] RECD: 09/14/16 STATUS: COMP _ SOURCE: URINE [facility]: ORDERED: Urine Culture COMMENTS: [id number] Urine Source: Random Procedure Result Reported Site Urine Culture Final 09/15/16- 1613 ML No Growth (<1,000 CFU/mL) * ML - MAIN LAB ([facility]) . END OF REPORT * ML=Testing performed at Main Lab DEPARTMENT OF PATHOLOGY, [address] [place] [address] Anjum Anderson M.D. Director [facility] # [id number] 9 SEE RESULT BELOW Name: MIN FIERRO Li : [address]: Tanika Tello [facility] Acct: [id number] Unit: [id number] AGE: 26 Location: [facility] Re09/14/16 SEX: F Status: REG REF SPEC: [id number] TERELL: 09/14/16-[address] [facility] [address]: Tanika Tello [facility] REQ: [id number] RECD: 09/14/16 STATUS: COMP _ SOURCE: VAGINAL SPDESC: ORDERED: Jaswinder,Yeast DNA, Trich DNA COMMENTS: [id number] Procedure Result Reported Site Gardnerella/Yeast: Vaginal DNA Final 09/15/16- 1050 ML Organism 1 Negative Gardnerella Organism 2 Negative Wanda The presence of G. vaginalis, although suggestive, is not diagnostic for bacterial vaginosis. Results should be interpreted in conjuction with other clinical and laboratory data available. Women with vaginal discharge should be evaluated for risk factors of cervicitis and pelvic inflammatory disease, toxic shock syndrome (S.aureus), and if present, evaluated for organisms not included in this assay such as N. gonorrhoeae, C. trachomatis, Mobiluncus, Mycoplasma and/or Prevotella. Mixed infections may occur. The performance of this test on patient specimens collected during or immediately after antimicrobial therapy is unknown. The presence or absence of Wanda species, or G. vaginalis cannot be used as a test for therapeutic success or failure. Trichomonas: Vaginal DNA Probe Final 09/15/16- 1050 ML Organism 1 Negative Trichomonas CONTINUED ON NEXT PAGE * ML=Testing performed at Main Lab DEPARTMENT OF PATHOLOGY, [address] [place] [address] Anjum Anderson M.D. Director [facility] # [id number] Patient: MIN FIERRO [id number] (Continued) Specimen: [id number] Collected: 09/14/16-1255 Received: 09/14/16-1658 (Continued) Procedure Result Reported Site Trichomonas: Vaginal DNA Probe Final (continued) 09/15/16- 1049 The presence or absence of T. vaginalis cannot be used as a test for therapeutic success or failure. * ML - MAIN LAB ([facility]) . END OF REPORT * ML=Testing performed at Main Lab DEPARTMENT OF PATHOLOGY, [address] [place] [address] Anjum Anderson M.D. Director [facility] # [id number] 10 SCREEN NEGATIVE FOR OPEN NTD, DOWN SYNDROME AND TRISOMY 18. NT WAS USED IN THE RISK CALCULATIONS. 11 [place] rump length (CRL) was used to calculate gestational age. ESVIN, if provided, was not used for gestational age dating. 12 Reference Range: <2.50 IDD <1.90 TWINS <4.00 TWINS IDD <3.50 TRIPLETS <4.50 13 This test was performed using a kit that has not been cleared or approved by the FDA. The analytical performance characteristics of this test have been determined by [facility]. This test should not be used for diagnosis without confirmation by other medically established means. 14 The Sequential Integrated Screen combines SHAMA-A and hCG with or without a nuchal translucency measurement in the first trimester with AFP, unconjugated estriol, intact hCG and Inhibin A in the second trimester. This provides a useful screening test for detection of open neural tube defects, Down syndrome and Trisomy 18. It should be noted that normal results can never guarantee the of a normal baby and that 2 to 3 percent of newborns have some type of physical or mental defect, many of which are undetectable through any known diagnostic technique. Interpretation reviewed by: Joe Little, Ph.D., [facility] This is a screening test, not a diagnostic test. This risk assessment is based on demographic data provided by the ordering physician. Please notify the laboratory promptly if any data are incorrect. If you have questions concerning this report: For clinical consultation, call ; For technical questions, call ext [phone]; For recalculations, fax to [phone]. 15 For additional information, please refer to [email or web address]/faq/[email or web address] (This link is provided for informational/educational purposes only.) 16 [id number] 17 SEE RESULT BELOW Name: MIN FIERRO : [address]: Tanika ROBLES Acct: [id number] Unit: [id number] AGE: 26 Location: [facility] Re06/24/16 SEX: F Status: REG REF SPEC: [id number] TERELL: 06/24/16-[address] [facility] [address]: Tanika Tello [facility] REQ: [id number] RECD: 06/24/16 STATUS: COMP _ SOURCE: URINE SPDESC: ORDERED: Urine Culture COMMENTS: [id number] Procedure Result Reported Site Urine Culture Final 06/26/16- 850 ML No Growth (<1,000 CFU/mL) * ML - MAIN LAB ([facility]) . END OF REPORT * ML=Testing performed at Main Lab DEPARTMENT OF PATHOLOGY, [address] [place] [address] Anjum Anderson M.D. Director [facility] # [id number] 18 ADDITIONAL INFORMATION Testing performed by Inductively Coupled Plasma-Mass Spectrometry (ICP-MS). This test was developed and its performance characteristics determined by [facility] in a manner consistent with CLIA requirements. This test has not been cleared or approved by the U.S. Food and Drug Administration. 19 It is recognized that currently available assays for the detection of antibodies to HIV-1 and/or HIV-2 may not detect all infected individuals. HIV antibodies may be undetectable in some stages of the infection and in some clinical conditions. The performance of this assay has not been established for populations of infants or children. Assayed by Chemiluminescence Microparticle Immunoassay on the Siemens Advia Centaur CP. Values obtained with different methods or kits cannot be used interchangeably.The diagnostic specificity of the ADVIA Centaur 1/O/2 Enhanced assay in the low risk population was 99.90% (6052/6058) with a 95% confidence interval of 99.78 to 99.96%. 20 [id number] 21 Therapeutic target for the treatment of diabetes Mellitus patients is <7% HBA1C, and in selective patients <6.0%.Please refer to [place] [employer] Diabetic care guidelines for further information. 22 [id number] 23 Warning: A positive result is not useful for establishing a diagnosis of syphilis. In most situations, such a result may reflect a prior treated infection; a negative result can exclude a diagnosis of syphilis except for incubating or early primary disease. 24 [id number] GC/Chlamydia Source?: Thin Prep Trichomonas Source: Thin Prep 25 SEE RESULT BELOW Name: MIN FIERRO : [address]: Tanika ROBLES Acct: [id number] Unit: [id number] AGE: 26 Location: [facility] Re06/24/16 SEX: F Status: REG REF SPEC: [id number] TERELL: 06/24/16-[address] [facility] [address]: Tanika Tello [facility] REQ: [id number] RECD: 06/24/16 STATUS: SOUT _ ORDERED: IMAGE ANALYSIS COMMENTS: [id number] FINAL DIAGNOSIS Negative for Intraepithelial lesion or Malignancy A. Ectocervical/Endocervical Specimen Adequacy: Satisfactory of evaluation Transformation zone component identified Patient Information: HPV: Thin Layer Pap Test w/reflex to high risk HPV RNA testing when ASCUS Actual Specimen Date: 06/24/16 Last Menstrual Date: 03/25/16 Date of Last Specimen: 12/24/13 ?: Y Signed (signature on file) JAQUAN Lynch(ASCP) 06/27 1382 This Pap test was evaluated with the assistance of the FliplingoPrep Test Imaging System. Due to cytologic findings at the rag boiler microscope, comprehensive manual rescreening by a Radar Operator may be required. The Pap Smear is a screening test designed to aid in the detection of premalignant and malignant conditions of the uterine cervix. It is not a diagnostic procedure and should not be used as the sole means of detecting cervical cancer. Both false- positive and false- negative reports do occur. Depending on your risk status, a Pap smear should be obtained and evaluated every 1-3 years. END OF REPORT * ML=Testing performed at Main Lab DEPARTMENT OF PATHOLOGY, [address] [place] [address] Anjum Anderson M.D. Director [facility] # [id number] 26 This patient's risk does not exceed the first trimester cut-off for Down syndrome or trisomy 18. The integrated screen calculation is awaiting the second trimester sample. NT WAS USED IN THE RISK CALCULATIONS. Thank you for submitting this patient's Part 1 specimen. These first trimester values will be incorporated with the second trimester values as part of the integrated testing process. Please submit the Part 2 specimen between 07/12/2016-09/05/2016 (15.0 and 22.9 weeks gestation) with 07/12/2016-07/25/2016 (15.0 - 16.9 weeks gestation) being optimal. When submitting Part 2, please include the following Specimen # from Part 1: [id number] 27 [place] rump length (CRL) was used to calculate gestational age. ESVIN, if provided, was not used for gestational age dating. 28 This test was performed using a kit that has not been cleared or approved by the FDA. The analytical performance characteristics of this test have been determined by [facility]. This test should not be used for diagnosis without confirmation by other medically established means. 29 Interpretation reviewed by: Joe Little, Ph.D., [facility] This is a screening test, not a diagnostic test. This risk assessment is based on demographic data provided by the ordering physician. Please notify the laboratory promptly if any data are incorrect. If you have questions concerning this report: For clinical consultation, call ; For technical questions, call ext [phone]; For recalculations, fax to . For additional information, please refer to http://[email or web address] [email or web address]/faq/FAQ89 (This link is being provided for informational/educational purposes only.) 30 For additional information, please refer to http://[email or web address]'an [email or web address].com/faq/FAQ89 (This link is being provided for informational/educational purposes only.) 31 For additional information, please refer to http://[employer]/faq/FAQ89 (This link is being provided for informational/educational purposes only.) 32 For additional information, please refer to http://[employer]/faq/FAQ89 (This link is being provided for informational/educational purposes only.) 33 For additional information, please refer to http://[employer]/faq/FAQ89 (This link is being provided for informational/educational purposes only.) 34 For additional information, please refer to http://[employer]/faq/FAQ89 (This link is being provided for informational/educational purposes only.) 35 For additional information, please refer to http://[employer]/faq/FAQ89 (This link is being provided for informational/educational purposes only.) 36 For additional information, please refer to http://[employer]/faq/FAQ89 (This link is being provided for informational/educational purposes only.) 37 For additional information, please refer to http://[employer]/faq/FAQ89 (This link is being provided for informational/educational purposes only.) 38 For additional information, please refer to http://[employer]/faq/FAQ89 (This link is being provided for informational/educational purposes only.) 39 CALCULATED ONE FETUS For additional information, please refer to http://[employer]/faq/FAQ89 (This link is being provided for informational/educational purposes only.) 40 For additional information, please refer to http://[employer]/faq/FAQ89 (This link is being provided for informational/educational purposes only.) 41 For additional information, please refer to http://[employer]/faq/FAQ89 (This link is being provided for informational/educational purposes only.) 42 For additional information, please refer to http://[employer]/faq/FAQ89 (This link is being provided for informational/educational purposes only.) 43 For additional information, please refer to http://[employer]/faq/FAQ89 (This link is being provided for informational/educational purposes only.) 44 For additional information, please refer to http://[employer]/faq/FAQ89 (This link is being provided for informational/educational purposes only.) 45 For additional information, please refer to http://[employer]/faq/FAQ89 (This link is being provided for informational/educational purposes only.) 46 For additional information, please refer to http://[employer]/faq/FAQ89 (This link is being provided for informational/educational purposes only.) 47 For additional information, please refer to http://[employer]/faq/FAQ89 (This link is being provided for informational/educational purposes only.) 48 For additional information, please refer to http://[employer]/faq/FAQ89 (This link is being provided for informational/educational purposes only.) 49 For additional information, please refer to http://[employer]/faq/FAQ89 (This link is being provided for informational/educational purposes only.) 50 For additional information, please refer to http://[employer]/faq/FAQ89 (This link is being provided for informational/educational purposes only.) 51 For additional information, please refer to http://[employer]/faq/FAQ89 (This link is being provided for informational/educational purposes only.) 52 For additional information, please refer to http://[employer]/faq/FAQ89 (This link is being provided for informational/educational purposes only.) 53 For additional information, please refer to http://[employer]/faq/FAQ89 (This link is being provided for informational/educational purposes only.) 54 For additional information, please refer to http://[employer]/faq/FAQ89 (This link is being provided for informational/educational purposes only.) 55 For additional information, please refer to http://[employer]/faq/FAQ89 (This link is being provided for informational/educational purposes only.) 56 For additional information, please refer to http://[employer]/faq/FAQ89 (This link is being provided for informational/educational purposes only.) 57 For additional information, please refer to http://[employer]/faq/FAQ89 (This link is being provided for informational/educational purposes only.) 58 For additional information, please refer to http://[employer]/faq/FAQ89 (This link is being provided for informational/educational purposes only.) 59 SEE RESULT BELOW Name: MIN FIERRO : [address]: Tanika ROBLES Acct: [id number] Unit: [id number] AGE: 26 Location: [facility] Re06/24/16 SEX: F Status: REG REF SPEC: [id number] TERELL: 06/24/16-[address]: Tanika ROBLES REQ: [id number] RECD: 06/24/16203 STATUS: COMP _ SOURCE: VAGINAL [facility]: ORDERED: Jaswinder,Yeast DNA COMMENTS: [id number] Procedure Result Reported Site Gardnerella/Yeast: Vaginal DNA Final 06/25/16- 1126 ML Organism 1 Negative Gardnerella Organism 2 Negative Wanda The presence of G. vaginalis, although suggestive, is not diagnostic for bacterial vaginosis. Results should be interpreted in conjuction with other clinical and laboratory data available. Women with vaginal discharge should be evaluated for risk factors of cervicitis and pelvic inflammatory disease, toxic shock syndrome (S.aureus), and if present, evaluated for organisms not included in this assay such as N. gonorrhoeae, C. trachomatis, Mobiluncus, Mycoplasma and/or Prevotella. Mixed infections may occur. The performance of this test on patient specimens collected during or immediately after antimicrobial therapy is unknown. The presence or absence of Wanda species, or G. vaginalis cannot be used as a test for therapeutic success or failure. * ML - MAIN LAB ([facility]) . END OF REPORT * ML=Testing performed at Main Lab DEPARTMENT OF PATHOLOGY, [address] [place] [address] Anjum Anderson M.D. Director [facility] # [id number] 60 Female urine specimens have been self-validated by [facility] and have been granted conditional assay approval by [facility]. 61 GC/Chlamydia Source?: Endocervical Trichomonas Source: Endocervical 62 It is recognized that currently available assays for the detection of antibodies to HIV-1 and/or HIV-2 may not detect all infected individuals. HIV antibodies may be undetectable in some stages of the infection and in some clinical conditions. The performance of this assay has not been established for populations of infants or children. Assayed by Chemiluminescence Microparticle Immunoassay on the Siemens Advia Centaur CP. Values obtained with different methods or kits cannot be used interchangeably.The diagnostic specificity of the ADVIA Centaur 1/O/2 Enhanced assay in the low risk population was 99.90% (6052/6058) with a 95% confidence interval of 99.78 to 99.96%. 63 Warning: A positive result is not useful for establishing a diagnosis of syphilis. In most situations, such a result may reflect a prior treated infection; a negative result can exclude a diagnosis of syphilis except for incubating or early primary disease. 64 , Pediatric (<=12yrs) or Maternal?: NO 65 RUN DATE: 07/06/14 [facility] LAB LIVE PAGE 1 RUN TIME: 1341 [address] [place], [place] [address] Specimen Inquiry Name: MIN FIERRO : [address]: Jt Pineda Li Acct: [id number] Unit: [id number] AGE: 24 Location: [facility] Re07/04/14 SEX: F Status: DEP REF SPEC: [id number] TERELL: 07/04/[address]: Jt Pineda [facility] REQ: [id number] RECD: 07/04/14 STATUS: SAKSHI PHILLIPS DR: Jalen Ayoub MD _ SOURCE: URINE SPDESC: ORDERED: Urine Culture Procedure Result Verified Site Urine Culture Final 07/06/14- 1341 ML Organism 1 NORMAL SKYLER [place] Count 10-25,000 (Moderate) CFU/ML END OF REPORT * ML=Testing performed at Main Lab DEPARTMENT OF PATHOLOGY, [address] [place] [address] Anjum Anderson M.D. Director [facility] # [id number] 66 The urine specimen was tested at the listed cutoffs: Drug class test level (ng/ml) Amphetamines 300 Barbituates 200 Benzodiazepine metabolites 200 Cocaine metabolites 300 Cannabinoids 25 Opiates 200 Pcp 25 This is a screening procedure. Positive results are not confirmed. Specimen was received without chain of custody. Results should be used for medical purposes only. 67 RUN DATE: 06/29/14 [facility] LAB LIVE PAGE 1 RUN TIME: [address] [place] [address] Specimen Inquiry Name: MIN FIERRO : [address]: Digna Cummings [facility] Acct: [id number] Unit: [id number] AGE: 24 Location: [facility] Re06/25/14 SEX: F Status: DEP REF SPEC: [id number] TERELL: 06/25/[address] [facility] [address]: Digna Cummings CNM REQ: [id number] RECD: 06/25/14 STATUS: SAKSHI PHILLIPS DR: Jalen Ayoub MD _ SOURCE: URINE SPDESC: ORDERED: Urine Culture Procedure Result Verified Site Urine Culture Final 06/29/14- 0854 ML Organism 1 JASWINDER VAGINALIS - PRESUMPTIVE [place] Count >100,000 (Many) CFU/ML Gardnerella vaginalis can play a role in extravaginal infections to include the urinary tract. Treatment of choice for local infections is metrondiazole. (Manual of Clinical Microbiology, p.508; Anitra's Color [facility] and Textbook of Diagnostic Microbiology, p. 836) END OF REPORT * ML=Testing performed at Main Lab DEPARTMENT OF PATHOLOGY, [address] [place] [address] Anjum Anderson M.D. Director [facility] # [id number] 68 Test Performed by: [address] [address] Jig Grinder Set Up Operator: Oneal Gtz III, M.D. 69 The performance of this assay has not been established for use in neonates, infants or on cord blood. Test Performed by: [address] [address] Jig Grinder Set Up Operator: Oneal Gtz III, M.D. 70 RUN DATE: 05/17/14 [facility] LAB LIVE PAGE 1 RUN TIME: 1050 [address] [place], [place] [address] Specimen Inquiry Name: MIN FIERRO : [address]: Digna Cummings [facility] Acct: [id number] Unit: [id number] AGE: 24 Location: [facility] Re05/15/14 SEX: F Status: REG REF SPEC: [id number] TERELL: 05/15/14-[address]: Digna Cummings [facility] REQ: [id number] RECD: 05/15/14056 STATUS: COMP _ SOURCE: URINE SPDESC: ORDERED: Urine Culture QUERIES: Medent Number [id number] Procedure Result Verified Site Urine Culture Final 05/17/14- 1049 ML No Growth Day 2 (<1,000 CFU/mL) END OF REPORT * ML=Testing performed at Main Lab DEPARTMENT OF PATHOLOGY, [facility] [place], [place] [address] Anjum Anderson M.D. Director [facility] # [id number] 71 The urine specimen was tested at the listed cutoffs: Drug class test level (ng/ml) Amphetamines 300 Barbituates 200 Benzodiazepine metabolites 200 Cocaine metabolites 300 Cannabinoids 25 Opiates 200 Pcp 25 This is a screening procedure. Positive results are not confirmed. Specimen was received without chain of custody. Results should be used for medical purposes only. 72 RUN DATE: 04/15/14 [facility] LAB LIVE PAGE 1 RUN TIME: 1140 [facility] [employer] [place], [place] [address] Specimen Inquiry Name: MIN FIERRO : [address]: Digna Cummings CNM Acct: [id number] Unit: [id number] AGE: 24 Location: [facility] Re04/13/14 SEX: F Status: DEP REF SPEC: [id number] TERELL: 04/13/14-[address]: Digna Cummings [facility] REQ: [id number] RECD: 04/13/14 STATUS: SASKHI PHILLIPS DR: Jalen Ayoub MD _ SOURCE: URINE SPDESC: ORDERED: Urine Culture QUERIES: Urine Source: Clean Catch Procedure Result Verified Site Urine Culture Final 04/15/14- 1140 ML Organism 1 STREP GROUP B [place] Count 1-10,000 (Few) CFU/ML Organism 2 NORMAL SKYLER [place] Count 1-10,000 (Few) CFU/ML Susceptibility testing of penicillins and other B-lactams approved by FDA for treatment of Streptococcus pyogenes (Group A Strep) and Streptococcus agalactiae (Group B Strep) is not necessary for clinical purposes and need not be done routinely, since as with vancomycin, resistant strains have not been recognized. (CLSI B113-F88;p.66) Positive isolates will be saved for one week. Please call the Microbiology Laboratory if further susceptibility testing is needed. END OF REPORT * ML=Testing performed at Main Lab DEPARTMENT OF PATHOLOGY, [address] [place] [address] Anjum Anderson M.D. Director [facility] # [id number] 73 INDEX VALUE RESULTS INTERPRETATION ------- < OR=0.90 NEGATIVE NO RUBELLA IGG ANTIBODY DETECTED 0.91 - 1.09 EQUIVOCAL PRESENCE OR ABSENCE OF RUBELLA IGG ANTIBODY CANNOT BE DISCERNED > OR=1.10 POSITIVE RUBELLA IGG ANTIBODY DETECTED THE PRESENCE OF RUBELLA IGG ANTIBODY SUGGESTS IMMUNIZATION OR PAST OR CURRENT INFECTION WITH RUBELLA VIRUS. 74 SCREEN NEGATIVE FOR OPEN NTD, DOWN SYNDROME AND TRISOMY 18. NT WAS USED IN THE RISK CALCULATIONS. 75 [place] rump length (CRL) was used to calculate gestational age. ESVIN, if provided, was not used for gestational age dating. 76 Reference Range: <2.50 IDD <1.90 TWINS <4.00 TWINS IDD <3.50 TRIPLETS <4.50 77 The Sequential Integrated Screen combines SHAMA-A and hCG with or without a nuchal translucency measurement in the first trimester with AFP, unconjugated estriol, intact hCG and Inhibin A in the second trimester. This provides a useful screening test for detection of open neural tube defects, Down syndrome and Trisomy 18. It should be noted that normal results can never guarantee the of a normal baby and that 2 to 3 percent of newborns have some type of physical or mental defect, many of which are undetectable through any known diagnostic technique. Interpretation reviewed by: Joe Little, Ph.D., [facility] This is a screening test, not a diagnostic test. This risk assessment is based on demographic data provided by the ordering physician. Please notify the laboratory promptly if any data are incorrect. If you have questions concerning this report: For clinical consultation, call ; For technical questions, call ext [phone]; For recalculations, fax to . This test was developed and its performance characteristics have been determined by [facility]. Performance characteristics refer to the analytical performance of the test. 78 This patient's risk does not exceed the first trimester cut-off for Down syndrome or trisomy 18. The integrated screen calculation is awaiting the second trimester sample. NT WAS USED IN THE RISK CALCULATIONS. Thank you for submitting this patient's Part 1 specimen. These first trimester values will be incorporated with the second trimester values as part of the integrated testing process. Please submit the Part 2 specimen between 02/11/2014-04/07/2014 (15.0 and 22.9 weeks gestation) with 02/11/2014-02/24/2014 (15.0 - 16.9 weeks gestation) being optimal. When submitting Part 2, please include the following Specimen # from Part 1: [id number] 79 [place] rump length (CRL) was used to calculate gestational age. ESVIN, if provided, was not used for gestational age dating. 80 Interpretation reviewed by: Jennie Mayers, Ph.D., [facility]. This is a screening test, not a diagnostic test. This risk assessment is based on demographic data provided by the ordering physician. Please notify the laboratory promptly if any data are incorrect. If you have questions concerning this report: For clinical consultation, call ; For technical questions, call ext [phone]; For recalculations, fax to . This test was developed and its performance characteristics have been determined by [facility]. Performance characteristics refer to the analytical performance of the test. 81 Therapeutic target for the treatment of diabetes Mellitus patients is <7% HBA1C, and in selective patients <6.0%.Please refer to [place] [employer] Diabetic care guidelines for further information. 82 It is recognized that currently available assays for the detection of antibodies to HIV-1 and/or HIV-2 may not detect all infected individuals. HIV antibodies may be undetectable in some stages of the infection and in some clinical conditions. The performance of this assay has not been established for populations of infants or children. Assayed by Chemiluminescence Microparticle Immunoassay on the Siemens Advia Centaur CP. Values obtained with different methods or kits cannot be used interchangeably.The diagnostic specificity of the ADVIA Centaur 1/O/2 Enhanced assay in the low risk population was 99.90% (6052/6058) with a 95% confidence interval of 99.78 to 99.96%. 83 YES 84 <5.0 Negative 5.0 - 25.0 Indeterminate >25.0 Positive 85 RUN DATE: 12/26/13 [facility] LAB LIVE PAGE 1 RUN TIME: [address] [place] [address] Specimen Inquiry Name: MIN FIERRO : [address]: Luiza Dave NP Acct: [id number] Unit: [id number] AGE: 23 Location: [facility] Re12/24/13 SEX: F Status: REG REF SPEC: [id number] TERELL: 12/24/13-[address]: Luiza Dave NP REQ: [id number] RECD: 12/24/13 STATUS: SOUT _ ORDERED: IMAGE ANALYSIS FINAL DIAGNOSIS Negative for Intraepithelial lesion or Malignancy A. Ectocervical/Endocervical Specimen Adequacy: Satisfactory of evaluation Transformation zone component identified Patient Information: HPV: Thin Layer Pap Test w/reflex to high risk HPV DNA testing when ASCUS Actual Specimen Date: 12/24/13 Last Menstrual Date: 10/30/13 ?: Y Post Menopausal?: N Hysterectomy?: N Previous Abnormal Pap Smears?:N Other Pertinent History: Prior Unknown Signed (signature on file) JAQUAN Mckeon (ASCP) 12/26/13 0847 This Pap test was evaluated with the assistance of the FliplingoPrep Test Imaging System. Due to cytologic findings at the rag boiler microscope, comprehensive manual rescreening by a Radar Operator may be required. The Pap Smear is a screening test designed to aid in the detection of premalignant and malignant conditions of the uterine cervix. It is not a diagnostic procedure and should not be used as the sole means of detecting cervical cancer. Both false- positive and false- negative reports do occur. Depending on your risk status, a Pap smear shoudl be obtained and evaluated every 1-3 years. END OF REPORT * ML=Testing performed at Main Lab DEPARTMENT OF PATHOLOGY, [address] [place] [address] Anjum Anderson M.D. Director [facility] Permit #[id number] Test Performed by: [facility] Dpt of Lab Med and Pathology [address] [place] [address] Jig Grinder Set Up Operator: Oneal Gtz III, M.D. Procedures Date Code Description Status 12/21/2018 80036 Ovarian Cystectomy Completed 12/21/2018 41647 Ovarian Cystectomy Completed 11/27/2018 06821 Echography Transvaginal Completed 12/08/2016 03888 Obstetric Care Routine Completed 12/07/2016 59200 Obstetric Care Routine Completed 12/02/2016 08247 Echography Uterus Limited Completed 11/18/2016 92725 Biophysical Profile Without Non Stress Test Completed 11/18/2016 60312 Echography Uterus Follow-Up Or Repeat Completed 11/15/2016 69285 Non-Stress Test Completed 08/15/2016 92907 Echography Uterus Complete Completed 06/23/2016 57637 Nuchal Translucency Ultrasound /First Gestation Completed 07/17/2014 89412 Obstetric Care Routine Completed 07/08/2014 79025 Echography Uterus Limited Completed 07/04/2014 09119 Non-Stress Test Completed 06/26/2014 80901 Non-Stress Test Completed 05/07/2014 27419 Non-Stress Test Completed 2014 79601 Echography Uterus Complete Completed 01/24/2014 77247 Nuchal Translucency Ultrasound /First Gestation Completed 12/24/2013 45129 OB Ultrasound First Trimester Completed 12/18/2013 74217 Echography Transvaginal Completed Encounters Type Date Location Provider Dx Diagnosis Office Visit 04/24/2019 10:45a [facility] Office Hollie Cisneros MD N76.0 Acute vaginitis R30.0 Dysuria Office Visit 11/27/2018 11:40a [facility] Office Brent Manning N83.202 Unspecified ovarian Tara Christensen cyst, left side Z01.818 Encounter for other preprocedural examination Office Visit 11/15/2016 3:44a [facility] Office Digna Cummings, O47.03 False labor before CNM 37 completed weeks of gest, third tri Office Visit 05/07/2015 11:20a [facility] Office Samira Castillo, 616.10 Vaginitis & ANP-C Vulvovaginitis Unspec Office Visit 03/13/2015 1:30p [facility] Office Luiza Dave NP V72.31 Routine Genetic Counsellor Examination V74.5 Screening Examination Venereal Disease 788.1 Dysuria V76.2 Screening Malignant Neoplasm Cervix Office Visit 07/04/2014 9:24a Delivery Jt Pineda, 644.13 Labor Threatened CNM Other Antepartum Cond Or Compl Office Visit 06/26/2014 10:58a [facility] Office Digna Cummings, V22.0 Supervision Of CNM Normal First Office Visit 05/07/2014 8:19a [facility] Shaniqua 644.10 Labor Threatened MD Natan Other Episode Of Care Unspec Or N/A Office Visit 04/13/2014 3:26p [facility] Digna Cummings, 644.10 Labor Threatened CNM Other Episode Of Care Unspec Or N/A Office Visit 03/06/2014 8:00a [facility] Hollie Cisneros 616.10 Vaginitis & Vulvovaginitis Unspec V22.0 Supervision Of Normal First 780.2 Syncope & Collapse V76.41 Screening Malignant Neoplasm Rectum Office Visit 12/18/2013 2:20p [facility] Brent Christensen, 620.2 Ovarian Cyst Other M.D. & Unspec 789.9 Abdomen & Pelvis Symptoms Other Office Visit 10/04/2013 1:30p [facility] Luiza Dave NP 620.2 Ovarian Cyst Other & Unspec Plan of Treatment 01/10/2019 - Brent Christensen M.D.D27.1 Benign neoplasm of left ovaryComments: may liberalize [id number] Encounter for follow-up examination after completed treatmen
--- NOTE | 2019-05-02 12:59 | UC ---
Shoulder Pain HPI - HPI Summary HPI Summary: 29-year-old female who went to lift a large heavy bucket when she felt some pain in her left shoulder last evening. 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 She states this morning it was fine however she then took a bucket and swung it with her left arm and then she felt pain again in the left shoulder. - History of Current Complaint Stated Complaint: SHOULDER INJURY Time Seen by Provider: 05/02/19 12:58 Hx Obtained From: Patient Hx Last Menstrual Period: 11/16/18 ?: No Onset/Duration: Sudden Onset Timing: Constant Severity Initially: Moderate Severity Currently: Mild Character: Dull, Aching Aggravating Factor(s): Movement, Lifting Alleviating Factor(s): Rest Associated Signs And Symptoms: Positive: Negative Related History: Dominant Hand Right - Allergies/Home Medications Allergies/Adverse Reactions: Allergies Allergy/AdvReac Type Severity Reaction Status Date / Time bee venom protein (honey bee) Allergy Severe Anaphylatic Verified 05/02/19 13:02 Shock latex Allergy Severe Anaphylatic Verified 05/02/19 13:02 Shock blueberries Allergy Intermediate itchy Uncoded 05/02/19 13:02 throat Home Medications: Home Medications Ibuprofen TAB* [Motrin TAB* 600 MG] 600 mg PO Q6H PRN 05/02/19 [History Confirmed 05/02/19] metroNIDAZOLE [Flagyl 500 MG TAB] 500 mg PO BID 05/02/19 [History Confirmed ] PMH/Surg Hx/FS Hx/Imm Hx Previously Healthy: Yes Respiratory History: Asthma Other History Of: Negative For: Anticoagulant Therapy - Surgical History Surgical History: Yes Surgery Procedure, Year, and Place: APPY 2004. "two cysts removed from my throat" - Family History Known Family History: Positive: None, Cardiac Disease, Hypertension, Diabetes - Social History Alcohol Use: None Substance Use Type: None Substance Use Comment - Amount & Last Used: Percocet for sciatic pain Smoking Status (MU): Light Every Day Tobacco Smoker Type: Cigarettes Amount Used/How Often: 4-5 cigs/day Length of Time of Smoking/Using Tobacco: 2012 Have You Smoked in the Last Year: Yes Household Exposure Type: Cigarettes - Immunization History Most Recent Influenza Vaccination: 07/08/14 Most Recent Tetanus Shot: 09/2016 Most Recent Pneumonia Vaccination: unk Review of Systems All Other Systems Reviewed And Are Negative: Yes Motor: Positive: Decreased ROM - Decreased range of motion of her left shoulder. Neurovascular: Positive: Negative Musculoskeletal: Positive: Decreased ROM Neurological: Positive: Negative Is Patient Immunocompromised?: No Physical Exam Triage Information Reviewed: Yes Appearance: Well-Appearing, No Pain Distress, Well-Nourished Vital Signs Reviewed: Yes Musculoskeletal: Positive: Strength Intact, No Edema, ROM Limited @ - Patient is able to lift her left arm up almost 90 before she has some pain at the before AC joint. She has pain on palpation to the before AC joint. There is no erythema, deformity, swelling or bruising. Good peripheral pulses neuro sensation capillary refill. Good arm strength with flexion and extension against resistance. She is able to rotate her shoulder easier than lifting her arm. Neurological: Positive: Alert, Muscle Tone Normal Psychological Exam: Normal Skin Exam: Normal Shoulder Course/Dx - Course Course Of Treatment: Left shoulder x-ray: FINDINGS: The soft tissues are unremarkable. The bone mineralization is within normal limits. No acute fracture is identified. Anatomic alignment is maintained with normal acromiohumeral and coracoclavicular intervals. The joint spaces are well preserved. The partially imaged left hemithorax is unremarkable. IMPRESSION: No fracture or traumatic malalignment of the left shoulder. The patient is going to use an arm sling and apply ice to the sore areas. She is to avoid lifting or any other movement causes pain. She is to follow-up with the orthopedist on Monday if no improvement. She does not work again until Monday. - Differential Dx/Diagnosis Provider Diagnosis: Left shoulder strain Discharge - Sign-Out/Discharge Documenting (check all that apply): Patient Departure All imaging exams completed and their final reports reviewed: Yes - Discharge Plan Condition: Fair Disposition: HOME Patient Education Materials: Shoulder Sprain (ED) Forms: *Work Release Referrals: No Primary Care Phys,NOPCP [Primary Care Provider] - Dexter Cummings MD [Medical Doctor] - Additional Instructions: Apply ice intermittently throughout the day. Avoid movements that cause pain. Avoid heavy lifting. No work until Monday. Follow-up with the orthopedist if you continue to have pain without improvement. - Billing Disposition and Condition Condition: FAIR Disposition: Home - Attestation Statements Provider Attestation: I was available for consult. This patient was seen by the CARLOS. The patient was not presented to, seen by, or examined by me. Gregorio
[2019-05-02 13:02] VITALS: BP 110/72
== END 2019-05-02 14:05 | disposition home or self-care (01) ==
LOC: UCEAST 12:48
DX: S46.912A Strain of unspecified muscle, fascia and tendon at shoulder and upper arm level, left arm, initial encounter (principal); X50.0XXA Overexertion from strenuous movement or load, initial encounter; Y92.9 Unspecified place or not applicable; J45.909 Unspecified asthma, uncomplicated; F17.210 Nicotine dependence, cigarettes, uncomplicated; Z91.040 Latex allergy status
CPT/HCPCS: 99212; G0463

== ENCOUNTER 2019-05-31 10:40 | Emergency (ER) | payer SELFPAY ==
[2019-05-31 11:15] LABS: ABS Eosinophils 0.1 10^3/ul (0-0.6); ABS Lymphocytes 1.8 10^3/ul (1.0-4.8); ABS Monocytes 0.6 10^3/ul (0-0.8); ABS Neutrophils 5.3 10^3/ul (1.5-7.7); Eosinophil % 0.9 %; Hematocrit 38 % (35-47); Hemoglobin 12.9 g/dL (12.0-16.0); Mean Corpuscular HGB Conc 34 g/dL (31-36); Mean Corpuscular Hemoglobin 32 pg (27-31); Mean Corpuscular Volume 94 fL (80-97); Platelet Count 230 10^3/uL (150-450); Red Cell Distribution Width 12 % (10-15); White Blood Count 7.8 10^3/uL (3.5-10.8)
--- NOTE | 2019-05-31 11:20 | ED ---
- HPI Summary HPI Summary: 29 year old at 5 weeks presents with suprapubic abdominal pain. Patient has a history of ovarian cyst which she had surgically removed in December. Patient found out she was on Monday and has had worsening suprapubic pain; pain is sharp and crampy and comes and goes. Pain does not radiate. Pain resembles that of ovarian cysts she has had in the past. Patient did not have pain like this with previous pregnancies. Patient denies hematuria, vaginal discharge and dysuria. 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 Patient had had nausea and vomiting. no fevers. on exam has tenderness suprapubic. wbc normal. hcg is 831. no IUP seen but this is in an early . told follow up with ob. patient understand and agrees with plan. - History of Current Complaint Chief Complaint: EDOBProblems Stated Complaint: /CRAMPING PER PT Time Seen by Provider: 05/31/19 10:51 Pain Intensity: 7 - Assessment Hx Now: No SAB: 0 IEA: 0 Hx Hysterectomy: No - Additional Pertinent History Maternal Blood Type and Rh: A Positive - Allergies/Home Medications Allergies/Adverse Reactions: Allergies Allergy/AdvReac Type Severity Reaction Status Date / Time bee venom protein (honey bee) Allergy Severe Anaphylatic Verified 05/31/19 10:45 Shock latex Allergy Severe Anaphylatic Verified 05/31/19 10:45 Shock blueberries Allergy Intermediate itchy Uncoded 05/02/19 13:02 throat Home Medications: Home Medications Prenata Chewable Tablet 1 tab PO DAILY 05/31/19 [History Confirmed 05/31/19] PMH/Surg Hx/FS Hx/Imm Hx Endocrine/Hematology History: Denies: Hx Anticoagulant Therapy, Hx Diabetes, Hx Thyroid Disease Cardiovascular History: Denies: Hx Hypertension, Hx Pacemaker/ICD Respiratory History: Reports: Hx Asthma Denies: Hx Chronic Obstructive Pulmonary Disease (COPD) GI History: Denies: Hx Ulcer History: Reports: Hx Renal Disease - pyelonephritis, Other Problems/ Disorders - ovarian cysts, PYLONEPHRITIS IN 2009 APPROX Musculoskeletal History: Reports: Hx Tendonitis - hx of both knees Sensory History: Denies: Hx Contacts or Glasses, Hx Hearing Aid Opthamlomology History: Denies: Hx Contacts or Glasses Neurological History: Denies: Hx Dementia, Hx Seizures Psychiatric History: Denies: Hx Substance Abuse - Cancer History Cancer Type, Location and Year: denies Hx Chemotherapy: No - Surgical History Surgery Procedure, Year, and Place: APPY 2004. "two cysts removed from my throat" Hx Anesthesia Reactions: No - Immunization History Date of Tetanus Vaccine: unknown Date of Influenza Vaccine: unknown Infectious Disease History: No Infectious Disease History: Denies: Hx Clostridium Difficile, Hx Hepatitis, Hx Human Immunodeficiency Virus (HIV), Hx of Known/Suspected MRSA, Hx Shingles, Hx Tuberculosis, Hx Known/ Suspected VRE, Hx Known/Suspected VRSA, History Other Infectious Disease, Traveled Outside the [place] in Last 30 Days - Family History Known Family History: Positive: None, Cardiac Disease, Hypertension, Diabetes - Social History Alcohol Use: None Substance Use Type: Reports: None Substance Use Comment - Amount & Last Used: Percocet for sciatic pain Hx Tobacco Use: Yes Smoking Status (MU): Light Every Day Tobacco Smoker Type: Cigarettes Amount Used/How Often: 4-5 cigs/day Length of Time of Smoking/Using Tobacco: 2013 Have You Smoked in the Last Year: Yes Review of Systems Negative: Fever Negative: Chest Pain Negative: Shortness Of Breath All Other Systems Reviewed And Are Negative: Yes Physical Exam - Physical Exam Triage Information Reviewed: Yes Vital Signs Reviewed: Yes Appearance: Positive: Well-Appearing Skin: Positive: Warm, Dry Head/Face: Positive: Normal Head/Face Inspection Eyes: Positive: Normal, Conjunctiva Clear ENT: Positive: Pharynx normal Respiratory/Lung Sounds: Positive: Clear to Auscultation, Breath Sounds Present Cardiovascular: Positive: Normal, RRR Abdomen Description: Positive: Soft, Other: - tenderness in lower abd Bowel Sounds: Positive: Present Musculoskeletal: Positive: Normal Neurological: Positive: Normal Psychiatric: Positive: Normal Diagnostics - Vital Signs Vital Signs Temp Pulse Resp BP Pulse Ox 05/31/19 10:42 98.2 F 86 16 130/85 100 - Laboratory Lab Results: Lab Results 05/31/19 05/31/19 Range/Units 11:07 11:07 WBC 7.8 (3.5-10.8) 10^3/uL RBC 4.10 (3.70-4.87) 10^6 /uL Hgb 12.9 (12.0-16.0) g/dL Hct 38 (35-47) % MCV 94 (80-97) fL MCH 32 H (27-31) pg MCHC 34 (31-36) g/dL RDW 12 (10-15) % Plt Count 230 (150-450) 10^3/uL MPV 8.0 (7.4-10.4) fL Neut % (Auto) 68.4 % Lymph % (Auto) 23.0 % [place] % (Auto) 7.3 % Eos % (Auto) 0.9 % Baso % (Auto) 0.4 % Absolute Neuts (auto) 5.3 (1.5-7.7) 10^3/ul Absolute Lymphs (auto) 1.8 (1.0-4.8) 10^3/ul Absolute Monos (auto) 0.6 (0-0.8) 10^3/ul Absolute Eos (auto) 0.1 (0-0.6) 10^3/ul Absolute Basos (auto) 0.0 (0-0.2) 10^3/ul Absolute Nucleated RBC 0.0 10^3/ul Nucleated RBC % 0.0 Blood Type Pending Result Diagrams: 05/31/19 11:07 05/31/19 11:07 Lab Statement: Any lab studies that have been ordered have been reviewed, and results considered in the medical decision making process. - Ultrasound No standard instances Ultrasound Interpretation Completed By: Radiologist Summary of Ultrasound Findings: IMPRESSION: A small amount of fluid is noted in the endometrial cavity without definite. gestational sac. Corpus luteal cyst in the left ovary. Follow-up exam is suggested. Course/Dx - Course Course Of Treatment: 29 year old at 5 weeks presents with suprapubic abdominal pain. Patient has a history of ovarian cyst which she had surgically removed in December. Patient found out she was on Monday and has had worsening suprapubic pain; pain is sharp and crampy and comes and goes. Pain does not radiate. Pain resembles that of ovarian cysts she has had in the past. Patient did not have pain like this with previous pregnancies. Patient denies hematuria, vaginal discharge and dysuria. 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 Patient had had nausea and vomiting. no fevers. on exam has tenderness suprapubic. wbc normal. hcg is 831. no IUP seen but this is in an early . urine questionable if has uti. will wait for final culture to see if significant and need to treat as has no uti symptoms at this time. told follow up with ob. patient understand and agrees with plan. - Differential Diagnosis/HQI/PQRI: Threatened , Ectopic , Intrauterine , UTI - Diagnoses Provider Diagnoses: Abdominal pain during Discharge - Sign-Out/Discharge Documenting (check all that apply): Patient Departure Patient Received Moderate/Deep Sedation with Procedure: No - Discharge Plan Condition: Good Disposition: HOME Patient Education Materials: Abdominal Pain in (ED) Referrals: Shaniqua Gama MD [Medical Doctor] - Additional Instructions: Can take Tylenol for pain every 6 hours Follow up with obgyn Return to ED if develop severe abdominal pain, fever, severe bleeding with symptoms such as lightheadedness or any new or worsening symptoms - Billing Disposition and Condition Condition: GOOD Disposition: Home
[2019-05-31 11:33] LABS: Albumin 4.1 g/dL (3.2-5.2); Albumin/Globulin Ratio 1.5 (1-3); BUN/Creatinine Ratio 14.9 (8-20); C Reactive Protein 1.71 mg/L (<8.01); Calcium 9.2 mg/dL (8.6-10.3); EGFR African American 126.8 (>60); EGFR Non-African American 104.8 (>60); Globulin 2.8 g/dL (2-4); Potassium 3.6 mmol/L (3.5-5.0); Total Protein 6.9 g/dL (6.4-8.9)
[2019-05-31 11:38] LABS: HCG Pregnancy 831.66 mIU/mL
[2019-05-31 11:39] LABS: Urine Appearance Cloudy; Urine Bacteria 1+ (Absent); Urine Bilirubin Negative (Negative); Urine Blood Negative (Negative); Urine Color Yellow; Urine Glucose Negative (Negative); Urine Ketones Negative (Negative); Urine Nitrite Negative (Negative); Urine Protein Negative (Negative); Urine Red Blood Cell Trace(0-2/hpf) (Absent); Urine Specific Gravity 1.019 (1.010-1.030); Urine Squamous Epithelial Cell Present (Absent); Urine Urobilinogen Negative (Negative); Urine White Blood Cell Trace(0-5/hpf) (Absent)
[2019-05-31 12:50] VITALS: BP 0/0
== END 2019-05-31 12:49 | disposition home or self-care (01) ==
LOC: ED 10:40
DX: O23.41 Unspecified infection of urinary tract in pregnancy, first trimester (principal); O99.331 Smoking (tobacco) complicating pregnancy, first trimester; F17.210 Nicotine dependence, cigarettes, uncomplicated; Z3A.01 Less than 8 weeks gestation of pregnancy; N83.12 Corpus luteum cyst of left ovary
CPT/HCPCS: 36415; 76817; 80053; 81003; 81015; 84702; 85025; 86140; 86900; 86901; 87086; 99282

== ENCOUNTER 2019-07-11 15:19 | Emergency (ER) | payer MEDICAID ==
[2019-07-11 17:03] LABS: ABS Basophils 0.1 10^3/ul (0-0.2); ABS Eosinophils 0.1 10^3/ul (0-0.6); ABS Lymphocytes 2.5 10^3/ul (1.0-4.8); ABS Monocytes 0.7 10^3/ul (0-0.8); ABS Neutrophils 7.3 10^3/ul (1.5-7.7); Hematocrit 36 % (35-47); Hemoglobin 12.5 g/dL (12.0-16.0); Mean Corpuscular HGB Conc 35 g/dL (31-36); Mean Corpuscular Hemoglobin 32 pg (27-31); Mean Corpuscular Volume 93 fL (80-97); Nucleated Red Blood Cells % 0.1; Platelet Count 275 10^3/uL (150-450); Red Blood Count 3.86 10^6 /uL (3.70-4.87); Red Cell Distribution Width 12 % (10-15); White Blood Count 10.7 10^3/uL (3.5-10.8)
[2019-07-11] MEDS ORDERED: NS 0.9% 1000 ML** 1,000 ML IV ONE (17:17)
[2019-07-11 17:24] LABS: Albumin 4.2 g/dL (3.2-5.2); Albumin/Globulin Ratio 1.4 (1-3); BUN/Creatinine Ratio 21.6 (8-20); Calcium 9.3 mg/dL (8.6-10.3); EGFR African American 173.7 (>60); EGFR Non-African American 143.6 (>60); Globulin 2.9 g/dL (2-4); Potassium 3.8 mmol/L (3.5-5.0); Total Bilirubin 0.6 mg/dL (0.2-1.0); Total Protein 7.1 g/dL (6.4-8.9)
--- NOTE | 2019-07-11 17:37 | ED ---
Shortness of Breath - HPI Summary HPI Summary: This patient is a 29 year old F present to [facility] with a chief complaint of SOB and lightheadedness since 1546. Patient states that she had to sit and she went to feel her pulse. Patient states that her pulse seemed faster than usual with slight CP characterized ass heaviness. The patient rates the pain 5/10 in severity. Symptoms aggravated by nothing. Symptoms alleviated by nothing. Patient reports lightheadedness, CP, shaky, puritic. Patient denies abdominal pain, vaginal discharge, vaginal bleeding, hematuria. Patient states that she is 11 weeks . Patient states that she was prescribed promethazine for nausea which she has since stopped taking "over a week ago". Allergies Allergy/AdvReac Type Severity Reaction Status Date / Time bee venom protein (honey bee) Allergy Severe Anaphylatic Verified 05/31/19 10:45 Shock latex Allergy Severe Anaphylatic Verified 05/31/19 10:45 Shock blueberries Allergy Intermediate itchy Uncoded 05/02/19 13:02 throat Home Medications Medication Instructions Recorded Confirmed Type Ibuprofen TAB* [Motrin TAB* 600 MG] 600 mg PO Q6H PRN 05/02/19 05/31/19 History Prenata Chewable Tablet 1 tab PO DAILY 05/31/19 05/31/19 History Procedures Procedure Code Date ANESTH INJECT-SPIN CANAL 03.91 07/17/14 ARTIF RUPT MEMBRANES NEC 73.09 07/17/14 DELIVERY OF PRODUCTS OF CONCEPTION, EXTERNAL APPROACH 42P9UFE 12/07/16 MONITORING NOS 75.34 07/17/14 INJECT ANTIBIOTIC 99.21 07/17/14 INJECT/INFUSE NEC 99.29 09/28/13 INSERT CATHETER SPINAL CANAL, INFUSION THER. SUB. 03.90 07/17/14 NEBULIZER THERAPY 93.94 01/23/13 REPAIR OB LACERATION NEC 75.69 07/17/14 SOFT TISSUE INJECT NEC 83.98 08/08/13 Patient Problems Appendectomy (Active) Evaluation for Rupture of Membranes (Acute) Ovarian cyst (Acute) (Acute 07/17/14) Threatened premature labor (Acute) Asthma (Chronic) Back pain (Chronic) History of PID (Chronic) Kidney disease (Chronic) Smoker (Chronic) - History of Current Complaint Chief Complaint: EDDizziness Time Seen by Provider: 07/11/19 16:56 Hx Obtained From: Patient Onset/Duration: Sudden Onset Timing: Constant Dyspnea At: Rest Aggravating Factors: Nothing Alleviating Factors: Nothing Associated Signs & Symptoms: Negative - Allergy/Home Medications Allergies/Adverse Reactions: Allergies Allergy/AdvReac Type Severity Reaction Status Date / Time bee venom protein (honey bee) Allergy Severe Anaphylatic Verified 05/31/19 10:45 Shock latex Allergy Severe Anaphylatic Verified 05/31/19 10:45 Shock blueberries Allergy Intermediate itchy Uncoded 05/02/19 13:02 throat PMH/Surg Hx/FS Hx/Imm Hx Endocrine/Hematology History: Denies: Hx Anticoagulant Therapy, Hx Diabetes, Hx Thyroid Disease Cardiovascular History: Denies: Hx Hypertension, Hx Pacemaker/ICD Respiratory History: Reports: Hx Asthma Denies: Hx Chronic Obstructive Pulmonary Disease (COPD) GI History: Denies: Hx Ulcer History: Reports: Hx Renal Disease - pyelonephritis, Other Problems/ Disorders - ovarian cysts, PYLONEPHRITIS IN 2009 APPROX Musculoskeletal History: Reports: Hx Tendonitis - hx of both knees Sensory History: Denies: Hx Contacts or Glasses, Hx Hearing Aid Opthamlomology History: Denies: Hx Contacts or Glasses Neurological History: Denies: Hx Dementia, Hx Seizures Psychiatric History: Denies: Hx Substance Abuse - Cancer History Cancer Type, Location and Year: denies Hx Chemotherapy: No - Surgical History Surgery Procedure, Year, and Place: APPY 2004. "two cysts removed from my throat" Hx Anesthesia Reactions: No - Immunization History Date of Tetanus Vaccine: unknown Date of Influenza Vaccine: unknown Immunizations Up to Date: Yes Infectious Disease History: No Infectious Disease History: Denies: Hx Clostridium Difficile, Hx Hepatitis, Hx Human Immunodeficiency Virus (HIV), Hx of Known/Suspected MRSA, Hx Shingles, Hx Tuberculosis, Hx Known/ Suspected VRE, Hx Known/Suspected VRSA, History Other Infectious Disease, Traveled Outside the [place] in Last 30 Days - Family History Known Family History: Positive: None, Cardiac Disease, Hypertension, Diabetes - Social History Alcohol Use: None Substance Use Type: Reports: None Substance Use Comment - Amount & Last Used: Percocet for sciatic pain Hx Tobacco Use: Yes Smoking Status (MU): Light Every Day Tobacco Smoker Type: Cigarettes Amount Used/How Often: 4-5 cigs/day Length of Time of Smoking/Using Tobacco: 2013 Have You Smoked in the Last Year: Yes Review of Systems Positive: Other - light heade, shaky Positive: Chest Pain - characterized as heavy Positive: Shortness Of Breath Negative: Abdominal Pain Negative: discharge - vaginal discharge or vaginal bleeding Positive: Other - puritic All Other Systems Reviewed And Are Negative: Yes Physical Exam - Summary Physical Exam Summary: Constitutional: Well-developed, Well-nourished, Alert. (-) Distressed Skin: Warm, Dry HENT: Normocephalic; Atraumatic Eyes: Conjunctiva normal Neck: Musculoskeletal ROM normal neck. (-) JVD, (-) Stridor, (-) Tracheal deviation Cardio: Rhythm regular, rate normal, Heart sounds normal; Intact distal pulses; The pedal pulses are 2+ and symmetric. Radial pulses are 2+ and symmetric. (-) Murmur Pulmonary/Chest wall: Effort normal. (-) Respiratory distress, (-) Wheezes, (-) Rales Abd: Soft, (-) tenderness, (-) Distension, (-) Guarding, (-) Rebound Musculoskeletal: (-) Edema Lymph: (-) Cervical adenopathy Neuro: Alert, Oriented x3 Psych: Mood and affect Normal Triage Information Reviewed: Yes Vital Signs On Initial Exam: Initial Vitals Temp Pulse Resp BP Pulse Ox 99.3 F 81 20 108/69 99 07/11/19 15:26 07/11/19 15:26 07/11/19 15:26 07/11/19 15:26 07/11/19 15:26 Vital Signs Reviewed: Yes Diagnostics - Vital Signs Vital Signs Temp Pulse Resp BP Pulse Ox 07/11/19 15:26 99.3 F 81 20 108/69 99 - Laboratory Lab Results: Lab Results 07/11/19 07/11/19 07/11/19 Range/Units 16:40 16:40 16:40 WBC 10.7 (3.5-10.8) 10^3/uL RBC 3.86 (3.70-4.87) 10^6 /uL Hgb 12.5 (12.0-16.0) g/dL Hct 36 (35-47) % MCV 93 (80-97) fL MCH 32 H (27-31) pg MCHC 35 (31-36) g/dL RDW 12 (10-15) % Plt Count 275 (150-450) 10^3/uL MPV 8.0 (7.4-10.4) fL Neut % (Auto) 68.7 % Lymph % (Auto) 23.0 % [place] % (Auto) 6.8 % Eos % (Auto) 1.0 % Baso % (Auto) 0.5 % Absolute Neuts (auto) 7.3 (1.5-7.7) 10^3/ul Absolute Lymphs (auto) 2.5 (1.0-4.8) 10^3/ul Absolute Monos (auto) 0.7 (0-0.8) 10^3/ul Absolute Eos (auto) 0.1 (0-0.6) 10^3/ul Absolute Basos (auto) 0.1 (0-0.2) 10^3/ul Absolute Nucleated RBC 0.0 10^3/ul Nucleated RBC % 0.1 APTT 32.1 (26.0-38.0) seconds Sodium 135 (135-145) mmol/L Potassium 3.8 (3.5-5.0) mmol/L Chloride 105 (101-111) mmol/L Carbon Dioxide 24 (22-32) mmol/L Anion Gap 6 (2-11) mmol/L BUN 11 (6-24) mg/dL Creatinine 0.51 (0.51-0.95) mg/dL Est GFR ( Amer) 173.7 (>60) Est GFR (Non-Af Amer) 143.6 (>60) BUN/Creatinine Ratio 21.6 H (8-20) Glucose 95 (70-100) mg/dL Calcium 9.3 (8.6-10.3) mg/dL Total Bilirubin 0.60 (0.2-1.0) mg/dL AST 13 (13-39) U/L ALT 12 (7-52) U/L Alkaline Phosphatase 38 (34-104) U/L Total Protein 7.1 (6.4-8.9) g/dL Albumin 4.2 (3.2-5.2) g/dL Globulin 2.9 (2-4) g/dL Albumin/Globulin Ratio 1.4 (1-3) Beta HCG, Quant Pending Result Diagrams: 07/11/19 16:40 07/11/19 16:40 Lab Statement: Any lab studies that have been ordered have been reviewed, and results considered in the medical decision making process. - Ultrasound US Ultrasound Interpretation Completed By: Radiologist Summary of Ultrasound Findings: US reveals, per radiologist, IMPRESSION: 1. There is a single living intrauterine a sonographic gestational age 10 weeks 4 days ESVIN 02/02/2020. 2. No subchorionic hemorrhage. ED Physician has reviewed this report. - EKG 1522 Cardiac Rate: NL - 60 bpm EKG Rhythm: Sinus Rhythm Summary of EKG Findings: Sinus rhythm of 60 bpm. Course/Dx - Course Course Of Treatment: This patient is a 29 year old F present to [facility] with a chief complaint of SOB and lightheadedness since 1545. EKG reveals sinus rhythm of 60 bpm. US reveals, per radiologist, IMPRESSION: 1. There is a single living intrauterine a sonographic gestational age 10 weeks 4 days ESVIN 02/02/2020. 2. No subchorionic hemorrhage. ED Physician has reviewed this report. Test results with no significant abnormalities except for BUN/ Creatinine 21.6, Urine Ketones Trace A. In the ED course the patient was given 1 bag of fluid IV. Patient will be discharged and follow up from Dr. Gama OB/ COST REPORT CLERK and [facility].The patient is agreeable with this plan. - Diagnoses Provider Diagnoses: Dehydration, Urinary frequency Discharge ED - Sign-Out/Discharge Documenting (check all that apply): Patient Departure - discharge Patient Received Moderate/Deep Sedation with Procedure: No - Discharge Plan Condition: Stable Disposition: HOME Patient Education Materials: Dehydration (ED), Urinary Urgency and Frequency ( DC) Referrals: [facility] [Outside] - 2 Days Shaniqua Gama MD [Medical Doctor] - 2 Days Additional Instructions: PLEASE FOLLOW UP WITH [facility] IN 2 TO 3 DAYS. PLEASE ALSO MAKE AN APPOINTMENT WITH DR. KRISHNAN IN LICENSED PSYCHOLOGIST IN 2 TO 3 DAYS. PLEASE RETURN TO THE EMERGENCY DEPARTMENT FOR CHANGING OR WORSENING SYMPTOMS - Attestation Statements Document Initiated by Scribe: Yes Documenting Scribe: Lalita Gallegos Provider For Whom Scribe is Documenting (Include Credential): Dr. Layo Magdaleno Scribe Attestation: Lalita Keyes , scribed for Dr. Layo Magdaleno on 07/11/19 at 2007. Status of Scribe Document: Ready
[2019-07-11 18:39] LABS: Urine Appearance Cloudy; Urine Bilirubin Negative (Negative); Urine Blood Negative (Negative); Urine Color Yellow; Urine Glucose Negative (Negative); Urine Ketones Trace (Negative); Urine Nitrite Negative (Negative); Urine Protein Negative (Negative); Urine Specific Gravity 1.021 (1.010-1.030); Urine Urobilinogen Negative (Negative)
[2019-07-11 19:29] VITALS: BP 102/67
== END 2019-07-11 19:20 | disposition home or self-care (01) ==
LOC: ED 15:19
DX: E86.0 Dehydration (principal); R35.0 Frequency of micturition; O99.331 Smoking (tobacco) complicating pregnancy, first trimester; F17.210 Nicotine dependence, cigarettes, uncomplicated; Z3A.10 10 weeks gestation of pregnancy; Z91.040 Latex allergy status
CPT/HCPCS: 36415; 76801; 80053; 81003; 84702; 85025; 85730; 93005; 96360; 96361; 99282

== ENCOUNTER 2020-01-24 00:49 | Inpatient (IN) | payer OTHER ==
[2020-01-24] MEDS ORDERED: Buffered Lidocaine 1% SYRIN* 1 ML/SYRINGE INTRADERM ONE (02:31)
[2020-01-24] MEDS ORDERED: Lactated Ringers 1000 ML Bag* 1,000 ML IV ONE ×3 (02:31→05:38)
[2020-01-24] MEDS ORDERED: Penicillin G Potassium IV* 5,000,000 UNITS in NS 0.9% 100 ML* 100 ML IVPB ONE (02:31)
[2020-01-24] MEDS ORDERED: OBEPIDURAL* 0 ML EPIDURAL ONE (02:35)
--- NOTE | 2020-01-24 02:41 | HP ---
General Information - Reason for Visit Spontaneous rupture of membranes - General Information Maternal Age: 29 Grav: 4 Para: 2 SAB: 1 IEA: 0 Estimated Due Date: 02/02/20 Determined By: Early Ultrasound Gestational Age in Weeks/Days: 38 5/7 weeks Maternal Blood Type and Rh: A Positive - Results this Serology/RPR Result: Non-Reactive Rubella Result: Immune HBsAg Result: Negative HIV Result: Negative GBS Culture Result: Positive Past Medical History Delivery History: Hx Uncomplicated Vaginal Delivery Pertinent Past Medical History: Non-Contributory Past Medical History Comment: Sciatica Pyelonephritis Syncope Pertinent Past Surgical History: See Records Past Surgical History Comment: Appendectomy - 2006 Cystectomy (throat) - 2002, 2009 Laparatomy ovarian cystectomy - 12/2018 Pertinent Family History: See Records Family History Comment: Father: alive & well Mother: Hepatitis C, cirrosis - Antepartal Records Antepartal Records: Reviewed, Complicated by: - GBS positive, heart palpitations Review of Systems Constitutional: Uncomfortable CV Complaint: No Respiratory: Shortness of Breath: No Gastrointestinal: No Nausea/Vomiting, Normal Bowel Movement Genitourinary: Leaking Fluid, No Dysuria, No Bleeding Musculoskeletal: No Complaint, No Epigastric Pain Neurological: No Headache, No Visual Changes Movement: Normal Exam Allergies/Adverse Reactions: Allergies bee venom protein (honey bee) Allergy (Severe, Verified 12/24/19 23:07) Anaphylatic Shock latex Allergy (Severe, Verified 12/24/19 23:07) Anaphylatic Shock blueberries Allergy (Intermediate, Uncoded 12/24/19 23:07) itchy throat B/P: 117/ 71, P: 93, R: 16, T: 98.2 - Measurements Height: 5 ft 3 in Weight: 159 lb Body Mass Index (BMI): 28.1 Pre- Weight: 120 lb - Exam Breast: Breast Exam Deferred CVA: No CVA Tenderness Extremities: No Edema Heart: Normal Rhythm/Heart Sounds HEENT: No Significant Findings Lungs: Clear Bilaterally Reflexes: DTR 2+ Thyroid: No Thyromegaly - Abdominal Exam Abdomen Exam: Non-Tender, Fundal Height Consistent with Dates - Ultrasound/Biophysical Profile Ultrasound Status: Not Done Targeted Exam Findings See L&D Outpatient Visit Provider Note for Findings: N/A Estimated Weight: 7 lbs by munira's Cervical Exam: 3cm Effacement: 80% Station: -1 Presenting Part: Vertex Membrane Status: SROM Amniotic Fluid Evaluation: Gross Rupture Bleeding/Discharge: None EFM Findings - External Monitor Findings Baseline Heart Rate: 135 External Monitor Findings: Accelerations Present, No Pattern of Variable or Late Decelerations, Variability Moderate, Baseline Stable Contractions: Regular, Moderate, 45-90 Seconds Contraction Frequency: 3-5 min Assessment/Plan - Assessment A: IUP at 38 5/7 weeks No evidence of metabolic acidemia GBS positive Gross SROM at 0215 P: Admit to inpatient Desires epidural, will place IV. Dr. Cotto already en route Penicillin IV for GBS prophylaxis per protocol q2h temperatures Reassess PRN Anticipate SVB - Obstetrical Risk Factors Obstetrical Risk Factors: GBS Positive - Plan Plan: Admit - Anticipate Vaginal Delivery - Date/Time of Admission Date of Admission: 01/24/20 Time of Admission: 02:30
[2020-01-24] MEDS ORDERED: Lactated Ringers 1000 ML Bag* 1,000 ML IV SCH ×4 (03:00→08:00)
[2020-01-24 03:11] LABS: ABS Basophils 0.1 10^3/ul (0-0.2); ABS Eosinophils 0.1 10^3/ul (0-0.6); ABS Lymphocytes 2.9 10^3/ul (1.0-4.8); ABS Neutrophils 13.7 10^3/ul (1.5-7.7); Eosinophil % 0.6 %; Hematocrit 34 % (35-47); Hemoglobin 11.6 g/dL (12.0-16.0); Lymphocyte % 16.4 %; Mean Corpuscular HGB Conc 34 g/dL (31-36); Mean Corpuscular Hemoglobin 31 pg (27-31); Mean Corpuscular Volume 92 fL (80-97); Mean Platelet Volume 9.6 fL (7.4-10.4); Platelet Count 232 10^3/uL (150-450); Red Blood Count 3.74 10^6 /uL (3.70-4.87); Red Cell Distribution Width 13 % (10-15); White Blood Count 17.8 10^3/uL (3.5-10.8)
[2020-01-24] MEDS ORDERED: fentaNYL* 50 MCG/ML 2 ML VIAL (100 MCG VIAL) ONE ×2 (03:14→03:23)
[2020-01-24] MEDS ORDERED: Famotidine TAB* 20 MG PO PRN ×2 (03:33→05:38)
[2020-01-24] MEDS ORDERED: Phenylephrine 40 MCG/ML SYRINGE IV PUSH PRN ×2 (03:33)
--- NOTE | 2020-01-24 04:17 | PN ---
Progress Note - Progress Note Date of Service: 01/24/20 Note: S: Resting s/p intrathecal. Reports inconsistent pain relief. States UCs are still uncomfortable but vagina and legs are numb O: B/P: 107/69, P: 84, T: 98.2 FHR: baseline 140, moderate variability, + accelerations, no decelerations UCs: q 3-4 min, moderate VE: 8/90/-2, clear fluid A: IUP at 38 5/7 weeks Category I FHR, no evidence of metabolic acidemia GBS positive, treated x 1 P: Repositioned; feels slightly more comfortable lying down vs. sitting upright Reassess PRN Continue GBS prophylaxis per protocol Anticipate SVB
[2020-01-24] MEDS ORDERED: OBEPIDURAL* 250 ML EPIDURAL ONE (05:03)
[2020-01-24] MEDS ORDERED: Sodium Citrate/Citric Acid* 15 ML UDC PO PRN (05:38)
[2020-01-24] MEDS ORDERED: OBEPIDURAL* 250 ML EPIDURAL SCH (06:00)
[2020-01-24] MEDS ORDERED: Oxytocin in LR* 20 UNITS/1,000 ML BAG IVPB SCH (06:10)
[2020-01-24] MEDS ORDERED: Oxytocin in LR* 20 UNITS/1,000 ML BAG IVPB ONE (06:14)
[2020-01-24] MEDS ORDERED: Ibuprofen TAB* 600 MG ONE (06:58)
[2020-01-24] MEDS ORDERED: Penicillin G Potassium IV* 3,000,000 UNITS in NS 0.9% 100 ML* 100 ML IVPB SCH (07:00)
[2020-01-24] MEDS ORDERED: Glycerin ADULT SUPP PR PRN (07:07)
[2020-01-24] MEDS ORDERED: Witch Hazel PAD* JAR TOPICAL PRN (07:07)
[2020-01-24] MEDS ORDERED: Acetaminophen TAB* 325 MG PO PRN (07:07)
--- NOTE | 2020-01-24 07:19 | PROCNOTE ---
[facility] OB: Delivery Note - Delivery A Date of : 01/24/20 Time of : 06:05 [place] Sex: Male Gestational Age in Weeks and Days at Delivery: 38 Weeks and 5 Days Delivery Method: Spontaneous Vaginal Labor: Spontaneous Did Patient attempt ?: N/A, No Previous Amniotic Fluid: Clear Estimated Blood Loss: 300 Anesthesia/Analgesia: IM/IV, ITF/Spinal for Labor, CEI for Labor Anesthesia Comment: Dr. Cotto Delivered By: Zohra Doll - Nursery Level of Nursery: Regular/Bedside - Perineum Perineal Injury: Perineal Laceration, 1st Degree Perineal Injury Comment: repair with 3-0 vicryl under lidocaine infiltration Perineal Repair: By Delivering Practioner - Events Delivery Events of Note: Pitocin Only After Delivery, Partial Course of Antibiotics - Additional Delivery Notes Additional Delivery Notes: experienced SROM to clear fluid and received first intrathecal and then CEI per preference with poor relief. GBS prophylaxis initiated, one dose given. Progressed to complete and complete. Began pushing with good effort, slow controlled delivery of head OA to DEBBIE, shoulders followed easily with next push. Male infant delivered to maternal abdomen, spontaneous cry, HR > 110, vigorous. Apgars 9 and 9. Cord was doubly clamped and cut by mother's friend once pulsations ceased. Intact placenta delivered shortly via naomi. Fundus firm with massage. IV Pitocin initiated at 250 cc given rapid labor. Perineum and vagina carefully inspected, first degree laceration noted, repair as above. Infant weight pending for skin to skin. Mother and infant stable at time of note, EBL = 300 cc
[2020-01-24] MEDS ORDERED: Simethicone TAB* 80 MG TAB.CHEW PO SCH (08:30)
[2020-01-24] MEDS: Docusate CAP* 100 MG PO SCH ×3 (08:43→20:59)
[2020-01-24] MEDS: Dibucaine 1% 28.35 GM TUBE PR PRN (08:43)
[2020-01-24] MEDS ORDERED: Lidocaine 1% INJ* 10 MG/ML 30 ML SDV ONE (12:54)
[2020-01-24] MEDS: Ibuprofen TAB* 600 MG PO SCH ×3 (13:07→20:59)
[2020-01-25] MEDS: Ibuprofen TAB* 600 MG PO SCH ×2 (05:20→12:09)
[2020-01-25 06:46] LABS: ABS Eosinophils 0.1 10^3/ul (0-0.6); ABS Lymphocytes 2.7 10^3/ul (1.0-4.8); Hematocrit 29 % (35-47); Hemoglobin 9.7 g/dL (12.0-16.0); Lymphocyte % 22.7 %; Mean Corpuscular HGB Conc 34 g/dL (31-36); Mean Corpuscular Hemoglobin 32 pg (27-31); Mean Corpuscular Volume 93 fL (80-97); Mean Platelet Volume 9.2 fL (7.4-10.4); Nucleated Red Blood Cells % 0.1; Platelet Count 159 10^3/uL (150-450); Red Blood Count 3.08 10^6 /uL (3.70-4.87); Red Cell Distribution Width 13 % (10-15); White Blood Count 11.8 10^3/uL (3.5-10.8)
[2020-01-25 08:44] VITALS: BP 110/71
[2020-01-25] MEDS ORDERED: Ferrous Gluconate TAB* 324 MG TAB PO SCH (09:00)
[2020-01-25] MEDS: Docusate CAP* 100 MG PO SCH ×2 (12:09)
[2020-01-25] MEDS: Dibucaine 1% 28.35 GM TUBE PR PRN (16:15)
== END 2020-01-25 18:10 | disposition home or self-care (01) | DRG 560 ==
LOC: MCHOBOUT 00:49 → MCHOB 02:31
PROVIDERS: ADMIT Midwife; ATTEND Midwife
PROC: 10E0XZZ Delivery of Products of Conception, External Approach (ICD-10-PCS; principal; 2020-01-24)
PROC: 0HQ9XZZ Repair Perineum Skin, External Approach (ICD-10-PCS; 2020-01-24)
DX: O99.824 Streptococcus B carrier state complicating childbirth (principal); Z37.0 Single live birth; O70.0 First degree perineal laceration during delivery; Z3A.38 38 weeks gestation of pregnancy; O90.81 Anemia of the puerperium; D64.9 Anemia, unspecified
CPT/HCPCS: 36415; 85025; 86850; 86900; 86901; A9270-GY; J2540; J3010

== ENCOUNTER 2021-10-08 10:48 | Inpatient (IN) ==
[2021-10-08] MEDS ORDERED: Lactated Ringers 1000 ml BAG 1,000 ML IV ONE ×2 (12:57→17:04)
[2021-10-08] MEDS ORDERED: diPHENhydraMINE 25 mg TAB PO ONE (12:59)
[2021-10-08] MEDS ORDERED: Morphine 4 MG/ML VIAL (1 ml) IV ONE ×2 (15:39→19:36)
[2021-10-08] MEDS ORDERED: Dexamethasone IV 4 MG/ML VIAL 1 ml VIAL IV SLOW PU ONE (15:40)
[2021-10-08] MEDS ORDERED: Magnesium Sulfate 2 gm BAG 2 GM/50 ML BAG IVPB ONE (17:00)
[2021-10-08 19:59] LABS: ABS Lymphocytes 0.9 10^3/ul (1.0-4.8); ABS Monocytes 0.2 10^3/ul (0-0.8); ABS Neutrophils 7.5 10^3/ul (1.5-7.7); Eosinophil % 0.2 %; Hematocrit 34 % (35-47); Hemoglobin 11.5 g/dL (12.0-16.0); Lymphocyte % 10.9 %; Mean Corpuscular HGB Conc 34 g/dL (31-36); Mean Corpuscular Hemoglobin 32 pg (27-31); Mean Corpuscular Volume 95 fL (80-97); Mean Platelet Volume 8.9 fL (7.4-10.4); Platelet Count 193 10^3/uL (150-450); Red Blood Count 3.55 10^6 /uL (3.70-4.87); Red Cell Distribution Width 13 % (10-15); White Blood Count 8.7 10^3/uL (3.5-10.8)
[2021-10-08 20:14] LABS: ALT 15 U/L (7-52); AST 14 U/L (13-39); Albumin 3.1 g/dL (3.2-5.2); Albumin/Globulin Ratio 1.3 (1-3); Alkaline Phosphatase 42 U/L (35-149); Blood Urea Nitrogen 7 mg/dL (6-24); CO2 Carbon Dioxide 22 mmol/L (22-32); Calcium 7.5 mg/dL (8.6-10.3); Globulin 2.3 g/dL (2-4); Glucose 100 mg/dL (70-100); Magnesium 2.4 mg/dL (1.9-2.7); Potassium 3.6 mmol/L (3.5-5.0); Sodium 139 mmol/L (135-145); Total Protein 5.4 g/dL (6.4-8.9); eGFR CKD-EPI 129.9 (>60)
[2021-10-08 20:17] LABS: Anion Gap 4 mmol/L (2-11); Chloride 113 mmol/L (101-111)
[2021-10-08 21:09] LABS: C Reactive Protein 6.24 mg/L (<8.01)
[2021-10-08] MEDS ORDERED: Iohexol 350 (CONTRAST) 500 ML MDV IV ONE (21:20)
[2021-10-08 21:42] LABS: HCG Pregnancy < 0.60 mIU/mL
[2021-10-08] MEDS ORDERED: NS 0.9% 1000 ml BAG 1,000 ML IV SCH (21:45)
[2021-10-08] MEDS ORDERED: Valproic Acid IV 1,000 MG in NS 0.9% 100 ml BAG 100 ML IVPB ONE (21:48)
[2021-10-09 07:10] LABS: ABS Lymphocytes 1.3 10^3/ul (1.0-4.8); ABS Monocytes 0.4 10^3/ul (0-0.8); ABS Neutrophils 5.4 10^3/ul (1.5-7.7); Eosinophil % 0.1 %; Hematocrit 35 % (35-47); Hemoglobin 11.8 g/dL (12.0-16.0); Lymphocyte % 17.8 %; Mean Corpuscular HGB Conc 34 g/dL (31-36); Mean Corpuscular Hemoglobin 33 pg (27-31); Mean Corpuscular Volume 96 fL (80-97); Mean Platelet Volume 9.4 fL (7.4-10.4); Platelet Count 192 10^3/uL (150-450); Red Blood Count 3.61 10^6 /uL (3.70-4.87); Red Cell Distribution Width 13 % (10-15); White Blood Count 7.1 10^3/uL (3.5-10.8)
[2021-10-09 07:27] LABS: Calcium 8.2 mg/dL (8.6-10.3); Potassium 4.2 mmol/L (3.5-5.0); eGFR CKD-EPI 122.3 (>60)
[2021-10-09] MEDS: methylPREDNISolone 125 mg 2 ML VIAL IV SCH (08:24)
[2021-10-09] MEDS: Morphine 2 MG/ML SYRINGE IV PRN ×3 (08:28→21:30)
[2021-10-09] MEDS: Metoclopramide 5 MG/ML VIAL (10 mg) IV PRN ×2 (08:29→21:35)
[2021-10-09] MEDS: Amoxicillin/Clavul 875/125 TAB (Augmentin 875 tab) PO SCH ×2 (14:15→19:58)
[2021-10-09] MEDS: Polyethylene Glycol 3350 17 GM PACKET PO PRN (21:30)
[2021-10-10] MEDS: Morphine 2 MG/ML SYRINGE IV PRN ×2 (03:29→07:43)
[2021-10-10] MEDS: methylPREDNISolone 125 mg 2 ML VIAL IV SCH (07:42)
[2021-10-10] MEDS: Metoclopramide 5 MG/ML VIAL (10 mg) IV PRN ×2 (07:42→15:48)
[2021-10-10] MEDS: Amoxicillin/Clavul 875/125 TAB (Augmentin 875 tab) PO SCH ×2 (07:42→21:38)
[2021-10-10 10:51] LABS: ABS Monocytes 0.3 10^3/ul (0-0.8); ABS Neutrophils 7.9 10^3/ul (1.5-7.7); Eosinophil % 0.1 %; Hematocrit 36 % (35-47); Hemoglobin 12.2 g/dL (12.0-16.0); Lymphocyte % 11.1 %; Mean Corpuscular HGB Conc 34 g/dL (31-36); Mean Corpuscular Hemoglobin 32 pg (27-31); Mean Corpuscular Volume 96 fL (80-97); Mean Platelet Volume 8.7 fL (7.4-10.4); Platelet Count 250 10^3/uL (150-450); Red Blood Count 3.76 10^6 /uL (3.70-4.87); Red Cell Distribution Width 12 % (10-15); White Blood Count 9.3 10^3/uL (3.5-10.8)
[2021-10-10 11:07] LABS: C Reactive Protein 3.88 mg/L (<8.01); Calcium 8.9 mg/dL (8.6-10.3); Potassium 3.8 mmol/L (3.5-5.0); eGFR CKD-EPI 115.3 (>60)
[2021-10-10] MEDS: Polyethylene Glycol 3350 17 GM PACKET PO PRN (12:16)
[2021-10-10] MEDS ORDERED: Valproic Acid IV 1,000 MG in NS 0.9% 100 ml BAG 100 ML IVPB ONE (13:56)
[2021-10-10] MEDS ORDERED: diPHENhydraMINE IV 50 MG/ML 1 ml VIAL (BENADRYL) IV ONE (21:51)
[2021-10-11] MEDS: Amoxicillin/Clavul 875/125 TAB (Augmentin 875 tab) PO SCH ×2 (09:49→22:45)
[2021-10-11] MEDS: methylPREDNISolone 125 mg 2 ML VIAL IV SCH (09:50)
[2021-10-11] MEDS ORDERED: diPHENhydraMINE IV 50 MG/ML 1 ml VIAL (BENADRYL) IV ONE (11:46)
[2021-10-11] MEDS ORDERED: Gadoteridol (CONTRAST) 279.3 MG/ML 10 ML IV ONE (14:53)
[2021-10-11] MEDS: Prochlorperazine 5 mg/ml 2 ml VIAL (10 mg) IM SCH ×2 (16:22→22:45)
[2021-10-11] MEDS: Valproic Acid IV 500 MG in NS 0.9% 100 ml BAG 100 ML IVPB SCH ×2 (16:23→22:45)
[2021-10-11] MEDS ORDERED: Lactated Ringers 1000 ml BAG 1,000 ML IV SCH (17:00)
[2021-10-11] MEDS ORDERED: diPHENhydraMINE 25 mg TAB PO ONE (22:29)
[2021-10-12] MEDS: Prochlorperazine 5 mg/ml 2 ml VIAL (10 mg) IM SCH ×4 (03:54→20:58)
[2021-10-12] MEDS: Valproic Acid IV 500 MG in NS 0.9% 100 ml BAG 100 ML IVPB SCH ×3 (09:07→23:41)
[2021-10-12] MEDS: methylPREDNISolone 125 mg 2 ML VIAL IV SCH (09:08)
[2021-10-12] MEDS: Amoxicillin/Clavul 875/125 TAB (Augmentin 875 tab) PO SCH ×2 (09:08→20:57)
[2021-10-13] MEDS: Prochlorperazine 5 mg/ml 2 ml VIAL (10 mg) IM SCH ×2 (03:02→07:50)
[2021-10-13] MEDS: Valproic Acid IV 500 MG in NS 0.9% 100 ml BAG 100 ML IVPB SCH (07:48)
[2021-10-13] MEDS: Amoxicillin/Clavul 875/125 TAB (Augmentin 875 tab) PO SCH (07:49)
[2021-10-13] MEDS: methylPREDNISolone 125 mg 2 ML VIAL IV SCH (07:50)
[2021-10-13 10:47] VITALS: BP 115/64
== END 2021-10-13 13:10 | disposition home or self-care (01) | DRG 724 ==
LOC: ED 10:48 → EDHOLD 21:58 → SUATTDRO 21:58 → MED 10-09 00:05
PROVIDERS: ADMIT Hospitalist; ATTEND Student in an Organized Health Care Education/Training Program